=== PATIENT | female | born 1935 | race Caucasian/White ===

== ENCOUNTER 2021-04-22 13:06 | Inpatient (IN) | payer MEDICARE, SELFPAY ==
[2021-04-22] VITALS (10 sets, daily range): BP systolic 100–139; BP diastolic 29–68; PULSE 45–86; RESP 11–28; TEMP 36.4–37; O2SAT 94–97; BMI 20.1
--- NOTE | 2021-04-22 | ECG_ITS ---
Test Reason : BRADYCARDIA Blood Pressure : / mmHG Vent. Rate : 051 BPM Atrial Rate : 051 BPM P-R Int : 198 ms QRS Dur : 080 ms QT Int : 462 ms P-R-T Axes : 063 056 067 degrees QTc Int : 425 ms Sinus bradycardia Otherwise normal ECG No previous ECGs available Referred By: Generic ED Physician Electronically Signed By:KIA LAURENT
--- NOTE | ~2021-04-22 | XR_ITS ---
EXAMINATION: XR CHEST CLINICAL INFORMATION: Cough. Covid positive. COMPARISON: None TECHNIQUE: Frontal portable view of the chest was obtained. 3:16 PM FINDINGS: Lungs are clear. No pulmonary vascular congestion. There is no pleural effusion. The heart size is normal. The cardiac and mediastinal contours are normal. There are calcifications of the mitral valve annulus. There are calcifications of the thoracic aorta. There are multilevel degenerative changes of dorsal spine. XR/XR chest 1V IMPRESSION: There is no acute abnormality of the chest.
--- NOTE | ~2021-04-22 | CT_ITS ---
EXAMINATION: CT HEAD WITHOUT CONTRAST CLINICAL INFORMATION: Confusion and agitation. COMPARISON: None TECHNIQUE: Contiguous axial imaging was performed from the skull base to vertex without intravenous administration of contrast. This CT examination was performed using dose optimization techniques as appropriate, variously including the following: *Automated exposure control *Adjustment of mA and/or kV according to patient size (this includes techniques or standardized protocols for targeted exams where dose is matched to indication/reason for exam; i.e. extremities or head) *Use of iterative reconstruction technique DLP: 544 mGy-cm FINDINGS: There is no evidence of acute intracranial hemorrhage or territorial infarction. No abnormal mass effect or midline shift is seen. Diaz to white matter differentiation is well preserved. No extra-axial fluid collections are identified. The ventricles are normal in size. Mild patchy subcortical and periventricular white matter low-attenuation changes statistically related to white matter small vessel ischemic disease. The osseous structures and soft tissues are normal. The mastoid air cells and visualized portions of the paranasal sinuses are well aerated. CT/CT head/brain wo con IMPRESSION: No acute intracranial pathology.
--- NOTE | ~2021-04-22 | CT_ITS ---
EXAMINATION: CT ABDOMEN AND PELVIS WITH CONTRAST CLINICAL INFORMATION: Right-sided abdominal pain with black stool COMPARISON: None TECHNIQUE: Multidetector volumetric images were obtained from the superior aspect of the liver through the pubic symphysis following administration 85 mL of Omnipaque 350 intravenous contrast. Sagittal and coronal reformatted images were obtained on the technologist's workstation. Oral contrast: No This CT examination was performed using dose optimization techniques as appropriate, variously including the following: *Automated exposure control *Adjustment of mA and/or kV according to patient size (this includes techniques or standardized protocols for targeted exams where dose is matched to indication/reason for exam; i.e. extremities or head) *Use of iterative reconstruction technique DLP: 783 mGy-cm FINDINGS: LUNG BASES: Right lower lobe patchy infiltrate is present posteriorly (5:69). There is an ovoid pleural-based 2.0 x 1.0 x 1.5 cm nodular density seen (5:24). LIVER, GALLBLADDER, AND BILIARY TREE: The liver is normal in size, shape, and attenuation. 3 ovoid low-attenuation masses seen most likely cysts (5:94 and 7:28). The largest measures 2.7 cm in greatest dimension. No suspicious solid focal hepatic lesion is present. Patient status post cholecystectomy with prominent dilated extrahepatic bile ducts as well as central intrahepatic bile ducts. The common bile duct measures 1.6 cm proximally and 0.9 cm distally. PANCREAS: Unremarkable. SPLEEN: Unremarkable. ADRENAL GLANDS: Unremarkable. KIDNEYS AND URETERS: The kidneys are normal in size, shape, and attenuation. There are bilateral benign-appearing cortical renal cysts present. A cortical scar is present in the mid right kidney at 7:00. No hydronephrosis, hydroureter, or calculi seen. No perinephric stranding. BLADDER: Unremarkable. GASTROINTESTINAL TRACT: Extensive colonic diverticulosis is present without definite evidence of diverticulitis. The small and large bowel are unremarkable. The appendix is is not identified. ABDOMINAL WALL: No significant hernia is appreciated. LYMPH NODES: No mediastinal lymphadenopathy. VASCULAR: Marked atherosclerotic changes present in the aorta and its branches. Bilateral common iliac stenoses are present. No aneurysm is seen. A celiac stenosis is present. Bilateral renal artery stenoses are seen. PELVIC VISCERA: Unremarkable. OSSEOUS STRUCTURES: Mild degenerative changes present in the spine. Grade 1 anterolisthesis L4 upon L5. No bony destructive lesions. CT/CT abdomen pelvis w con IMPRESSION: 1. There is dilated common bile duct and mild intrahepatic biliary ductal dilatation. Please correlate with biliary function tests. No prior imaging is available for comparison. The 3 ovoid low-attenuation masses in the liver most likely represent benign cysts. Bilomas less likely. Upper abdominal ultrasound may be useful for further evaluation. 2. Bilateral renal cysts present along with right renal scarring. No further imaging follow-up is needed. 3. Marked vascular disease with bilateral common iliac stenoses, celiac stenosis and probable renal artery stenoses Fleischner guidelines were followed.
--- NOTE | ~2021-04-22 | US_ITS ---
EXAMINATION: US ABDOMEN LIMITED CLINICAL INFORMATION: Abnormal CT with dilated common bile. COMPARISON: CT abdomen pelvis performed earlier today TECHNIQUE: Real-time imaging of the right upper quadrant abdominal viscera. FINDINGS: PANCREAS: Normal. LIVER: The liver is normal in size. The liver contour is normal. Parenchymal echogenicity is normal. Multiple cysts are seen in the liver correlating with the findings seen on CT scan. There is no intrahepatic biliary duct dilatation seen. GALLBLADDER: The gallbladder is physiologically distended without evidence of stones, sludge, polyps, wall thickening or pericholecystic fluid. COMMON BILE DUCT: Normal in caliber measuring 1.5 cm in diameter correlating with the 1.6 cm CBD seen proximally on the CT scan.. RIGHT KIDNEY: Could not be imaged secondary to inability to position the patient.. FREE FLUID: None. US/US abdomen limited IMPRESSION: The common bile duct is dilated but no intrahepatic biliary ductal dilatation is seen. The cystic abnormalities in the liver on the CT scan appear to represent simple cysts.
[2021-04-22 13:46] LABS: COVID-19 Test Positive (Negative)
[2021-04-22 14:07] LABS: MANUAL DIFF FLAG NO
--- NOTE | 2021-04-22 14:07 | PC.NURSE ---
UNABLE TO OBTAIN EKG AT THIS TIME DUE TO PT BEING CONFUSED AND COMBATIVE. RN AWARE. WILL ATTEMPT AGAIN AT A LATER TIME
[2021-04-22 14:16] LABS: Basophils Percent Auto 0.2 % (0-2); Eosinophils Percent Auto 0.2 % (0-4); Hematocrit 40.2 % (37.0-47.0); Hemoglobin 14.1 g/dl (12.0-16.0); Imm Gran Abs Auto 0.02 X10*3/uL (0.00-0.03); Imm Gran Pct Auto 0.4 % (0.0-0.4); Lymphocytes Absolute Auto 1.5 X10*3/uL (1.2-4.9); Lymphocytes Percent Auto 32.2 % (20-40); Mean Corpuscular HGB Conc 35.1 g/dl (31.0-35.0); Mean Corpuscular Hemoglobin 31.2 pg (27.0-33.0); Mean Corpuscular Volume 88.9 fL (80.0-98.0); Mean Platelet Volume 10.8 fL (9.4-12.3); Monocytes Absolute Auto 0.6 X10*3/uL (0.1-1.2); Monocytes Percent Auto 13.8 % (2-11); Neutrophils Absolute Auto 2.4 x10*3/uL (2.0-8.3); Neutrophils Percent Auto 53.2 % (45-73); Platelet Count 221 X10*3/uL (160-400); Red Blood Count 4.52 X10*6/uL (4.20-5.50); White Blood Count 4.6 X10*3/uL (4.8-10.8)
--- NOTE | 2021-04-22 14:17 | ED.GENADULT ---
HPI - General Adult General Chief complaint: General Medical <REENA Ponce - Last Filed: 04/22/21 18:31> Stated complaint: black stools congestion <REENA Ponce Last Filed: 04/22/21 18:31> Time Seen by Provider: 04/22/21 13:47 <REENA Ponce Last Filed: 04/22/21 18:31> Source: family (daughter Ruth) <REENA Ponce Last Filed: 04/22/21 18:31> Mode of arrival: EMS <REENA Ponce Last Filed: 04/22/21 18:31> Limitations: altered mental status <REENA Ponce Last Filed: 04/22/21 18:31> History of Present Illness HPI narrative: 85-year-old female presents for increasing confusion, black stools and abdominal pain. Patient lives with her daughter Rebeca, who states that 5 days ago her mother started becoming more agitated and altered. She has had diarrhea for the last 3 days. Patient has been incontinent this week; she was able to toilet herself until 1 week ago when she became incontinent of urine. Rseo states patient had black stools twice this morning. She has had reduced oral intake, they are giving patient Pedialyte, but she is not drinking much. She has also had a cough and congestion <REENA Ponce - Last Filed: 04/22/21 18:31> 85-year-old female presents for increasing confusion, black stools and abdominal pain. Patient lives with her daughter Rebeca, who states that 5 days ago her mother started becoming more agitated and altered. She has had diarrhea for the last 3 days. Patient has been incontinent this week; she was able to toilet herself until 1 week ago when she became incontinent of urine. Ruth states patient had black stools twice this morning. She has had reduced oral intake, they are giving patient Pedialyte, but she is not drinking much. She has also had a cough and congestion <REENA Young Last Filed: 04/22/21 22:10> Related Data Home medications: Home Medications Medication Instructions Recorded Confirmed amlodipine 10 mg tablet 1 tab PO DAILY 04/22/21 04/22/21 carvedilol 25 mg tablet 1 tab PO BID 04/22/21 04/22/21 chlorthalidone 25 mg tablet 1 tab PO DAILY 04/22/21 04/22/21 chlorthalidone 25 mg tablet 1 tab PO DAILY 04/22/21 04/22/21 <REENA Ponce Last Filed: 04/22/21 18:31> Allergies/adverse reactions: Allergies Allergy/AdvReac Type Severity Reaction Status Date / Time Sulfa drugs Allergy Unknown Uncoded 05/29/18 00:00 <REENA Ponce Last Filed: 04/22/21 18:31> Review of Systems Constitutional: Constitutional: Reports body ache(s), Denies chills, Reports fatigue, Denies fever(s), Denies headache(s), Reports malaise and Reports weakness <REENA Ponce Last Filed: 04/22/21 18:31> Eyes: Eyes: Denies diplopia <REENA Ponce Last Filed: 04/22/21 18:31> ENT: Denies vertigo, Denies dizziness, Denies headache(s), Reports nasal discharge, Denies sinus pain and Denies sore throat <REENA Ponce Last Filed: 04/22/21 18:31> Cardiovascular: Cardiovascular: Denies chest pain, Denies syncope, Denies Loss of Consciousness, Denies palpitations and Denies dyspnea <REENA Ponce Last Filed: 04/22/21 18:31> Respiratory: Respiratory: Denies chest congestion, Denies cough and Denies dyspnea <REENA Ponce Last Filed: 04/22/21 18:31> Gastrointestinal: Gastrointestinal: Reports abdominal pain, Reports melena, Denies hematochezia, Denies constipation, Denies diarrhea, Denies vomiting and Denies hematemesis <REENA Ponce Last Filed: 04/22/21 18:31> Genitourinary: Genitourinary: Reports urinary incontinence <REENA Ponce Last Filed: 04/22/21 18:31> Musculoskeletal: Musculoskeletal: Reports no additional musculoskeletal complaints <REENA Ponce Last Filed: 04/22/21 18:31> Neurologic: Reports behavioral changes, Reports confusion, Denies vertigo, Denies dizziness, Denies syncope, Denies headache(s) and Reports weakness <REENA Ponce - Last Filed: 04/22/21 18:31> Psychiatric: Psychiatric: Reports anxiety, Reports behavioral changes, Reports confusion and Denies depression <REENA Ponce - Last Filed: 04/22/21 18:31> Endocrine: Endocrine: Reports fatigue and Denies palpitations <REENA Ponce - Last Filed: 04/22/21 18:31> [facility] Past Medical History Medical History: Medical History 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 HTN (hypertension) <REENA Ponce - Last Filed: 04/22/21 18:31> Social History Social History: Social History Advance Directives: Yes Advance Directives Information Provided: Yes Advance Directives on File: No <REENA Ponce - Last Filed: 04/22/21 18:31> Physical Exam Vital Signs: Vital Signs: Last Vital Signs Temp 97.5 F 04/22/21 20:56 Pulse 86 04/22/21 20:56 Resp 28 H 04/22/21 20:56 BP 111/32 L 04/22/21 20:09 Pulse Ox 95 04/22/21 17:21 BMI result Body Mass Index 20.1 <REENA Ponce - Last Filed: 04/22/21 18:31> Vital Signs: Last Vital Signs Temp 97.5 F 04/22/21 20:56 Pulse 86 04/22/21 20:56 Resp 28 H 04/22/21 20:56 BP 111/32 L 04/22/21 20:09 Pulse Ox 95 04/22/21 17:21 BMI result Body Mass Index 20.1 <REENA Young - Last Filed: 04/22/21 22:10> Const: General: anxious, combative and confusion <REENA Ponce - Last Filed: 04/22/21 18:31> Nutritional Appearance: cachectic <REENA Ponce Last Filed: 04/22/21 18:31> Orientation/consciousness: confusion <REENA Ponce - Last Filed: 04/22/21 18:31> Limitations: altered mental status <Joana Ball [place] - Last Filed: 04/22/21 18:31> HENMT: Head: Yes normal to inspection, Yes normocephalic and Yes atraumatic <Joana Ball [place] - Last Filed: 04/22/21 18:31> Ears: hearing grossly normal bilaterally, external ears normal, TM's normal bilaterally and EAC's normal <Joana Ball [place] - Last Filed: 04/22/21 18:31> General nose exam: Normal external nose present <Joana Ball [place] - Last Filed: 04/22/21 18:31> Face and sinus: Yes normal facial exam and Yes sinuses nontender <Joana Ball [place] - Last Filed: 04/22/21 18:31> Mouth: Normal oral and palatal mucosa present <Joana Ball [place] - Last Filed: 04/22/21 18:31> Throat: Yes posterior oropharynx normal <Joana Ball [place] - Last Filed: 04/22/21 18:31> Eyes: Conjunctivae: conjunctivae normal <Joana Ball [place] - Last Filed: 04/22/21 18:31> Pupils: Equal, round and reactive pupils present <Joana Ball [place] - Last Filed: 04/22/21 18:31> EOM: EOMs intact bilaterally <Joana Ball [place] - Last Filed: 04/22/21 18:31> Neck: Neck: Yes full ROM, Yes no lymphadenopathy and Yes supple <Joana Ball [place] - Last Filed: 04/22/21 18:31> Resp: Effort & Inspection: normal respiratory effort and able to speak in complete sentences <Joana Ball [facility] Last Filed: 04/22/21 18:31> Auscultation: clear to auscultation bilaterally, no crackles, no rales, no rhonchi and no wheezes <Joana Ball [place] - Last Filed: 04/22/21 18:31> Cardio: Rate: regular rate <Joana Ball [place] - Last Filed: 04/22/21 18:31> Rhythm: regular rhythm <Joana Ball [place] - Last Filed: 04/22/21 18:31> Heart sounds: S1 normal heart sound present and S2 normal heart sound present <REENA Ponce Last Filed: 04/22/21 18:31> GI: Inspection: Yes normal to inspection <REENA Ponce Last Filed: 04/22/21 18:31> Palpation (GI): Soft to palpation, Tenderness to palpation present (GI) in the RLQ and in the RUQ, Guarding due to palpation present (GI) in the RLQ and in the RUQ and not rigid <REENA Ponce Last Filed: 04/22/21 18:31> Percussion: Yes normal to percussion <REENA Ponce Last Filed: 04/22/21 18:31> Auscultation: normal bowel sounds <REENA Ponce Last Filed: 04/22/21 18:31> Skin: General skin exam: no rashes or lesions noted <REENA Ponce Last Filed: 04/22/21 18:31> Neuro: General: confusion <REENA Ponce Last Filed: 04/22/21 18:31> Cranial nerves: Yes Equal, round and reactive pupils present <REENA Ponce Last Filed: 04/22/21 18:31> Extrem: General: Yes normal to inspection and Yes full ROM <REENA Ponce Last Filed: 04/22/21 18:31> Psych: Mental Status: mental status grossly abnormal <REENA Ponce Last Filed: 04/22/21 18:31> Speech and movement: Psychomotor agitation in speech present <REENA Ponce Last Filed: 04/22/21 18:31> Affect: Anxious affect present and Irritable affect present <REENA Ponce Last Filed: 04/22/21 18:31> Attitude: Belligerent attititude/behavior present <REENA Ponce Last Filed: 04/22/21 18:31> Course Course Course Narrative: Pain 5-year-old female here with her daughter with whom she lives, for increasing altered mental status, black stools, diarrhea, abdominal pain, coughing congestion, and new urinary incontinence. Patient is COVID positive here. On exam, patient is agitated and is altered. She knows who and where she is, she is not oriented to time. She is extremely anxious and agitated, which her daughter says is new. Will get fecal occult stool, will do EKG, labs, troponin, urine, CT abdomen, blood cultures, lactic, chest x-ray, fluid Gave Ativan for agitation, patient had a brief episode of low blood pressure that is resolving with fluids. On rectal exam, patient has scant dark tarry stool. Patient has abnormal labs, sodium of 127, potassium 5.7, creatinine 1.98, troponin 29.9, lipase elevated at 793. White blood cell 4.6, H&H is normal at 14.1 and 40.2 <REENA Ponce - Last Filed: 04/22/21 18:31> Reevaluation(s) Reevaluation #1: Chest x-ray is normal, urine is noninfected. EKG shows sinus alisha otherwise is normal Patient is still hypotensive, will not order second full liter of fluid, as I do not want patient to go into flash pulmonary edema. Low BP is due to ativan administration, not sepsis. Not sepsis because lactate is normal, no leukocytosis. Awaiting second BMP to evaluate potassium and creatinine. Would like to CT with contrast, but Cr must be lower to do so. <REENA Ponce Last Filed: 04/22/21 18:31> Reevaluation #2: With fluid bolus, patient's potassium is now 5.2, creatinine 1.67, sodium 129. Discussed giving more fluid with Dr Wang, who said to go ahead and give a 3rd lliter; pt does not have CHF <REENA Ponce Last Filed: 04/22/21 18:31> Reevaluation #3: Pt's BP and HR are improving; she is waking up. Signed pt out to REENA Mobley, pending CT result and subsequent admission <REENA Ponce Last Filed: 04/22/21 18:31> Additional Reevaluation(s): CT scan showing CBD and intrahepatic biliary duct dilatation. she is status post cholecystectomy. right upper quadrant ultrasound ordered for further characterization. She continues to be agitated and altered. Will get CT head in plan for admission. Case discussed with Dr. Salas who will admit. <REENA Young - Last Filed: 04/22/21 22:10> Medical Decision Making Lab Data Result diagrams: : 04/22/21 14:01 04/22/21 16:02 <REENA Ponce - Last Filed: 04/22/21 18:31> Labs: Lab Results 04/22/21 04/22/21 04/22/21 Range/Units 13:34 14:01 14:01 WBC 4.6 L (4.8-10.8) X10*3/uL RBC 4.52 (4.20-5.50) X10*6/uL Hgb 14.1 (12.0-16.0) g/dl Hct 40.2 (37.0-47.0) % MCV 88.9 (80.0-98.0) fL MCH 31.2 (27.0-33.0) pg MCHC 35.1 H (31.0-35.0) g/dl RDW 12.0 (11.0-16.0) % Plt Count 221 (160-400) X10*3/uL MPV 10.8 (9.4-12.3) fL Immature Gran % (Auto) 0.4 (0.0-0.4) % Neut % (Auto) 53.2 (45-73) % Lymph % (Auto) 32.2 (20-40) % [place] % (Auto) 13.8 H (2-11) % Eos % (Auto) 0.2 (0-4) % Baso % (Auto) 0.2 (0-2) % Lymph # (Auto) 1.5 (1.2-4.9) X10*3/uL [place] # (Auto) 0.6 (0.1-1.2) X10*3/uL Eos # (Auto) 0.0 (0.0-0.4) X10*3/uL Baso # (Auto) 0.0 (0.0-0.2) X10*3/uL Abs Immat Gran (auto) 0.02 (0.00-0.03) X10*3/uL Absolute Neuts (auto) 2.4 (2.0-8.3) x10*3/uL Absolute Nucleated RBC 0.000 (0.0-0.012) X10*3/uL Nucleated RBC % (auto) 0.0 (0.0-0.2) /100WBC Sodium 127 L (135-145) mmol/L Potassium 5.7 H (3.3-5.1) mmol/L Chloride 97 (96-108) mmol/L Carbon Dioxide 20 L (22-29) mmol/L Anion Gap 16 (12-20) BUN 57 H (9-16) mg/dL Creatinine 1.98 H (0.5-1.4) mg/dL Estim Creat Clear Calc 16.3 Estimated GFR 24 Random Glucose 124 H (60-115) mg/dL Lactic Acid (0.5-2.0) mmol/L Calcium 9.3 (8.4-10.2) mg/dL Total Bilirubin 0.3 (0.0-1.0) mg/dL AST 48 H (5-31) U/L ALT 90 H (0-31) U/L Alkaline Phosphatase 63 (39-117) U/L Troponin I High Sens (<3.5-17.0) ng/L Total Protein 6.9 (6.5-8.0) g/dL Albumin 3.8 (3.5-5.0) g/dL Lipase 793 H (8-78) U/L Urine Color Urine Appearance Urine pH (5.0-8.0) Ur Specific Laura (1.005-1.025) Urine Protein (NEG-TRACE) MG/DL Urine Glucose (UA) (NEG) MG/DL Urine Ketones (NEG) MG/DL Urine Blood (NEG) Urine Nitrite (NEG) Ur Leukocyte Esterase (NEG) Urine RBC (0) /HPF Urine WBC (0-4) /HPF Ur Squamous Epith Cells /LPF Urine Bacteria /LPF Stool Occult Blood (NEGATIVE) COVID-19 ([facility]ACE) Positive A (Negative) COVID-19 Clin Com See Note 04/22/21 04/22/21 04/22/21 Range/Units 14:01 14:35 14:55 WBC (4.8-10.8) X10*3/uL RBC (4.20-5.50) X10*6/uL Hgb (12.0-16.0) g/dl Hct (37.0-47.0) % MCV (80.0-98.0) fL MCH (27.0-33.0) pg MCHC (31.0-35.0) g/dl RDW (11.0-16.0) % Plt Count (160-400) X10*3/uL MPV (9.4-12.3) fL Immature Gran % (Auto) (0.0-0.4) % Neut % (Auto) (45-73) % Lymph % (Auto) (20-40) % [place] % (Auto) (2-11) % Eos % (Auto) (0-4) % Baso % (Auto) (0-2) % Lymph # (Auto) (1.2-4.9) X10*3/uL [place] # (Auto) (0.1-1.2) X10*3/uL Eos # (Auto) (0.0-0.4) X10*3/uL Baso # (Auto) (0.0-0.2) X10*3/uL Abs Immat Gran (auto) (0.00-0.03) X10*3/uL Absolute Neuts (auto) (2.0-8.3) x10*3/uL Absolute Nucleated RBC (0.0-0.012) X10*3/uL Nucleated RBC % (auto) (0.0-0.2) /100WBC Sodium (135-145) mmol/L Potassium (3.3-5.1) mmol/L Chloride (96-108) mmol/L Carbon Dioxide (22-29) mmol/L Anion Gap (12-20) BUN (9-16) mg/dL Creatinine (0.5-1.4) mg/dL Estim Creat Clear Calc Estimated GFR Random Glucose (60-115) mg/dL Lactic Acid 1.0 (0.5-2.0) mmol/L Calcium (8.4-10.2) mg/dL Total Bilirubin (0.0-1.0) mg/dL AST (5-31) U/L ALT (0-31) U/L Alkaline Phosphatase (39-117) U/L Troponin I High Sens 29.9 H (<3.5-17.0) ng/L Total Protein (6.5-8.0) g/dL Albumin (3.5-5.0) g/dL Lipase (8-78) U/L Urine Color Urine Appearance Urine pH (5.0-8.0) Ur Specific Laura (1.005-1.025) Urine Protein (NEG-TRACE) MG/DL Urine Glucose (UA) (NEG) MG/DL Urine Ketones (NEG) MG/DL Urine Blood (NEG) Urine Nitrite (NEG) Ur Leukocyte Esterase (NEG) Urine RBC (0) /HPF Urine WBC (0-4) /HPF Ur Squamous Epith Cells /LPF Urine Bacteria /LPF Stool Occult Blood NEGATIVE (NEGATIVE) COVID-19 ([facility]ACE) (Negative) COVID-19 Clin Com 04/22/21 04/22/21 04/22/21 Range/Units 15:08 16:02 17:17 WBC (4.8-10.8) X10*3/uL RBC (4.20-5.50) X10*6/uL Hgb (12.0-16.0) g/dl Hct (37.0-47.0) % MCV (80.0-98.0) fL MCH (27.0-33.0) pg MCHC (31.0-35.0) g/dl RDW (11.0-16.0) % Plt Count (160-400) X10*3/uL MPV (9.4-12.3) fL Immature Gran % (Auto) (0.0-0.4) % Neut % (Auto) (45-73) % Lymph % (Auto) (20-40) % [place] % (Auto) (2-11) % Eos % (Auto) (0-4) % Baso % (Auto) (0-2) % Lymph # (Auto) (1.2-4.9) X10*3/uL [place] # (Auto) (0.1-1.2) X10*3/uL Eos # (Auto) (0.0-0.4) X10*3/uL Baso # (Auto) (0.0-0.2) X10*3/uL Abs Immat Gran (auto) (0.00-0.03) X10*3/uL Absolute Neuts (auto) (2.0-8.3) x10*3/uL Absolute Nucleated RBC (0.0-0.012) X10*3/uL Nucleated RBC % (auto) (0.0-0.2) /100WBC Sodium 129 L (135-145) mmol/L Potassium 5.2 H (3.3-5.1) mmol/L Chloride 103 (96-108) mmol/L Carbon Dioxide 18 L (22-29) mmol/L Anion Gap 13 (12-20) BUN 53 H (9-16) mg/dL Creatinine 1.67 H (0.5-1.4) mg/dL Estim Creat Clear Calc 19.4 Estimated GFR 29 Random Glucose 104 (60-115) mg/dL Lactic Acid (0.5-2.0) mmol/L Calcium 8.1 L D (8.4-10.2) mg/dL Total Bilirubin (0.0-1.0) mg/dL AST (5-31) U/L ALT (0-31) U/L Alkaline Phosphatase (39-117) U/L Troponin I High Sens 24.4 H (<3.5-17.0) ng/L Total Protein (6.5-8.0) g/dL Albumin (3.5-5.0) g/dL Lipase (8-78) U/L Urine Color YELLOW Urine Appearance CLEAR Urine pH 5.0 (5.0-8.0) Ur Specific Laura 1.020 (1.005-1.025) Urine Protein NEG (NEG-TRACE) MG/DL Urine Glucose (UA) NEG (NEG) MG/DL Urine Ketones NEG (NEG) MG/DL Urine Blood NEG (NEG) Urine Nitrite NEG (NEG) Ur Leukocyte Esterase NEG (NEG) Urine RBC 0 (0) /HPF Urine WBC 0 (0-4) /HPF Ur Squamous Epith Cells 1+ /LPF Urine Bacteria NONE /LPF Stool Occult Blood (NEGATIVE) COVID-19 ([facility]ACE) (Negative) COVID-19 Clin Com <REENA Ponce - Last Filed: 04/22/21 18:31> Lab Results 04/22/21 04/22/21 04/22/21 Range/Units 13:34 14:01 14:01 WBC 4.6 L (4.8-10.8) X10*3/uL RBC 4.52 (4.20-5.50) X10*6/uL Hgb 14.1 (12.0-16.0) g/dl Hct 40.2 (37.0-47.0) % MCV 88.9 (80.0-98.0) fL MCH 31.2 (27.0-33.0) pg MCHC 35.1 H (31.0-35.0) g/dl RDW 12.0 (11.0-16.0) % Plt Count 221 (160-400) X10*3/uL MPV 10.8 (9.4-12.3) fL Immature Gran % (Auto) 0.4 (0.0-0.4) % Neut % (Auto) 53.2 (45-73) % Lymph % (Auto) 32.2 (20-40) % [place] % (Auto) 13.8 H (2-11) % Eos % (Auto) 0.2 (0-4) % Baso % (Auto) 0.2 (0-2) % Lymph # (Auto) 1.5 (1.2-4.9) X10*3/uL [place] # (Auto) 0.6 (0.1-1.2) X10*3/uL Eos # (Auto) 0.0 (0.0-0.4) X10*3/uL Baso # (Auto) 0.0 (0.0-0.2) X10*3/uL Abs Immat Gran (auto) 0.02 (0.00-0.03) X10*3/uL Absolute Neuts (auto) 2.4 (2.0-8.3) x10*3/uL Absolute Nucleated RBC 0.000 (0.0-0.012) X10*3/uL Nucleated RBC % (auto) 0.0 (0.0-0.2) /100WBC Sodium 127 L (135-145) mmol/L Potassium 5.7 H (3.3-5.1) mmol/L Chloride 97 (96-108) mmol/L Carbon Dioxide 20 L (22-29) mmol/L Anion Gap 16 (12-20) BUN 57 H (9-16) mg/dL Creatinine 1.98 H (0.5-1.4) mg/dL Estim Creat Clear Calc 16.3 Estimated GFR 24 Random Glucose 124 H (60-115) mg/dL Lactic Acid (0.5-2.0) mmol/L Calcium 9.3 (8.4-10.2) mg/dL Total Bilirubin 0.3 (0.0-1.0) mg/dL AST 48 H (5-31) U/L ALT 90 H (0-31) U/L Alkaline Phosphatase 63 (39-117) U/L Troponin I High Sens (<3.5-17.0) ng/L Total Protein 6.9 (6.5-8.0) g/dL Albumin 3.8 (3.5-5.0) g/dL Lipase 793 H (8-78) U/L Urine Color Urine Appearance Urine pH (5.0-8.0) Ur Specific Laura (1.005-1.025) Urine Protein (NEG-TRACE) MG/DL Urine Glucose (UA) (NEG) MG/DL Urine Ketones (NEG) MG/DL Urine Blood (NEG) Urine Nitrite (NEG) Ur Leukocyte Esterase (NEG) Urine RBC (0) /HPF Urine WBC (0-4) /HPF Ur Squamous Epith Cells /LPF Urine Bacteria /LPF Stool Occult Blood (NEGATIVE) COVID-19 ([facility]) Positive A (Negative) COVID-19 Clin Com See Note 04/22/21 04/22/21 04/22/21 Range/Units 14:01 14:35 14:55 WBC (4.8-10.8) X10*3/uL RBC (4.20-5.50) X10*6/uL Hgb (12.0-16.0) g/dl Hct (37.0-47.0) % MCV (80.0-98.0) fL MCH (27.0-33.0) pg MCHC (31.0-35.0) g/dl RDW (11.0-16.0) % Plt Count (160-400) X10*3/uL MPV (9.4-12.3) fL Immature Gran % (Auto) (0.0-0.4) % Neut % (Auto) (45-73) % Lymph % (Auto) (20-40) % [place] % (Auto) (2-11) % Eos % (Auto) (0-4) % Baso % (Auto) (0-2) % Lymph # (Auto) (1.2-4.9) X10*3/uL [place] # (Auto) (0.1-1.2) X10*3/uL Eos # (Auto) (0.0-0.4) X10*3/uL Baso # (Auto) (0.0-0.2) X10*3/uL Abs Immat Gran (auto) (0.00-0.03) X10*3/uL Absolute Neuts (auto) (2.0-8.3) x10*3/uL Absolute Nucleated RBC (0.0-0.012) X10*3/uL Nucleated RBC % (auto) (0.0-0.2) /100WBC Sodium (135-145) mmol/L Potassium (3.3-5.1) mmol/L Chloride (96-108) mmol/L Carbon Dioxide (22-29) mmol/L Anion Gap (12-20) BUN (9-16) mg/dL Creatinine (0.5-1.4) mg/dL Estim Creat Clear Calc Estimated GFR Random Glucose (60-115) mg/dL Lactic Acid 1.0 (0.5-2.0) mmol/L Calcium (8.4-10.2) mg/dL Total Bilirubin (0.0-1.0) mg/dL AST (5-31) U/L ALT (0-31) U/L Alkaline Phosphatase (39-117) U/L Troponin I High Sens 29.9 H (<3.5-17.0) ng/L Total Protein (6.5-8.0) g/dL Albumin (3.5-5.0) g/dL Lipase (8-78) U/L Urine Color Urine Appearance Urine pH (5.0-8.0) Ur Specific Laura (1.005-1.025) Urine Protein (NEG-TRACE) MG/DL Urine Glucose (UA) (NEG) MG/DL Urine Ketones (NEG) MG/DL Urine Blood (NEG) Urine Nitrite (NEG) Ur Leukocyte Esterase (NEG) Urine RBC (0) /HPF Urine WBC (0-4) /HPF Ur Squamous Epith Cells /LPF Urine Bacteria /LPF Stool Occult Blood NEGATIVE (NEGATIVE) COVID-19 ([facility]) (Negative) COVID-19 Clin Com 04/22/21 04/22/21 04/22/21 Range/Units 15:08 16:02 17:17 WBC (4.8-10.8) X10*3/uL RBC (4.20-5.50) X10*6/uL Hgb (12.0-16.0) g/dl Hct (37.0-47.0) % MCV (80.0-98.0) fL MCH (27.0-33.0) pg MCHC (31.0-35.0) g/dl RDW (11.0-16.0) % Plt Count (160-400) X10*3/uL MPV (9.4-12.3) fL Immature Gran % (Auto) (0.0-0.4) % Neut % (Auto) (45-73) % Lymph % (Auto) (20-40) % [place] % (Auto) (2-11) % Eos % (Auto) (0-4) % Baso % (Auto) (0-2) % Lymph # (Auto) (1.2-4.9) X10*3/uL [place] # (Auto) (0.1-1.2) X10*3/uL Eos # (Auto) (0.0-0.4) X10*3/uL Baso # (Auto) (0.0-0.2) X10*3/uL Abs Immat Gran (auto) (0.00-0.03) X10*3/uL Absolute Neuts (auto) (2.0-8.3) x10*3/uL Absolute Nucleated RBC (0.0-0.012) X10*3/uL Nucleated RBC % (auto) (0.0-0.2) /100WBC Sodium 129 L (135-145) mmol/L Potassium 5.2 H (3.3-5.1) mmol/L Chloride 103 (96-108) mmol/L Carbon Dioxide 18 L (22-29) mmol/L Anion Gap 13 (12-20) BUN 53 H (9-16) mg/dL Creatinine 1.67 H (0.5-1.4) mg/dL Estim Creat Clear Calc 19.4 Estimated GFR 29 Random Glucose 104 (60-115) mg/dL Lactic Acid (0.5-2.0) mmol/L Calcium 8.1 L D (8.4-10.2) mg/dL Total Bilirubin (0.0-1.0) mg/dL AST (5-31) U/L ALT (0-31) U/L Alkaline Phosphatase (39-117) U/L Troponin I High Sens 24.4 H (<3.5-17.0) ng/L Total Protein (6.5-8.0) g/dL Albumin (3.5-5.0) g/dL Lipase (8-78) U/L Urine Color YELLOW Urine Appearance CLEAR Urine pH 5.0 (5.0-8.0) Ur Specific Laura 1.020 (1.005-1.025) Urine Protein NEG (NEG-TRACE) MG/DL Urine Glucose (UA) NEG (NEG) MG/DL Urine Ketones NEG (NEG) MG/DL Urine Blood NEG (NEG) Urine Nitrite NEG (NEG) Ur Leukocyte Esterase NEG (NEG) Urine RBC 0 (0) /HPF Urine WBC 0 (0-4) /HPF Ur Squamous Epith Cells 1+ /LPF Urine Bacteria NONE /LPF Stool Occult Blood (NEGATIVE) COVID-19 ([facility]) (Negative) COVID-19 Clin Com <RENEA Young - Last Filed: 04/22/21 22:10> ECG Data Interpretation: Patient is sinus bradycardia with a rate of 51, PA 198, QRS 80, QTC 425, no ST elevations or depressions, no T-wave changes <REENA Ponce - Last Filed: 04/22/21 18:31> Discharge Plan Discharge Clinical Impression: COVID-19, Acute dehydration, PAULA (acute kidney injury), Hyponatremia, Hyperkalemia, Acute alteration in mental status <REENA Ponce Last Filed: 04/22/21 18:31>
[2021-04-22 14:31] LABS: Alanine Aminotransferase 90 U/L (0-31); Albumin Level 3.8 g/dL (3.5-5.0); Alkaline Phosphatase 63 U/L (39-117); Anion Gap 16 (12-20); Aspartate Amino Transferase 48 U/L (5-31); Bilirubin Total 0.3 mg/dL (0.0-1.0); Blood Urea Nitrogen 57 mg/dL (9-16); Calcium 9.3 mg/dL (8.4-10.2); Carbon Dioxide 20 mmol/L (22-29); Chloride 97 mmol/L (96-108); Creatinine Clr Calc Pharmacy 16.3; Estimated Glomerular Filt Rate 24; Glucose Random 124 mg/dL (60-115); Lipase 793 U/L (8-78); Potassium 5.7 mmol/L (3.3-5.1); Sodium 127 mmol/L (135-145); Total Protein 6.9 g/dL (6.5-8.0)
[2021-04-22 14:32] LABS: Troponin-I High Sensitivity 29.9 ng/L (<3.5-17.0)
[2021-04-22] MEDS: LORazepam 2 MG/ML VIAL IVPUSH (14:37)
[2021-04-22] MEDS: 0.9 % Sodium Chloride 1,496.85 ML 1496.85 ML IV (14:41)
--- NOTE | 2021-04-22 14:41 | PHA.MEDREC ---
Pharmacy Consult ? Medication Reconciliation Pharmacy has completed the medication reconciliation. Confirmed medications with patient's duaghter. Sheri Pulido, AjayD
--- NOTE | 2021-04-22 14:51 | PC.NURSE ---
melanie VALLES notified of MAP 53 , BP 101/29
[2021-04-22 15:05] LABS: OBS Int Ctl Valid YES; OBS1 NEGATIVE (NEGATIVE)
[2021-04-22 15:15] LABS: Appearance Urine CLEAR; Color Urine YELLOW; Glucose Urine UA NEG (NEG); Leukocyte Esterase Urine NEG (NEG); Nitrite Urine NEG (NEG); Urine Blood NEG (NEG); Urine Ketones NEG (NEG); Urine Protein NEG (NEG-TRACE)
[2021-04-22 15:56] LABS: RBC Urine 0 /HPF (0); Squamous Epithelial Cell Urine 1+ /LPF; WBC Urine 0 /HPF (0-4)
[2021-04-22 16:26] LABS: Anion Gap 13 (12-20); Blood Urea Nitrogen 53 mg/dL (9-16); Calcium 8.1 mg/dL (8.4-10.2); Carbon Dioxide 18 mmol/L (22-29); Chloride 103 mmol/L (96-108); Creatinine Clr Calc Pharmacy 19.4; Estimated Glomerular Filt Rate 29; Glucose Random 104 mg/dL (60-115); Potassium 5.2 mmol/L (3.3-5.1); Sodium 129 mmol/L (135-145)
[2021-04-22] MEDS: iohexoL 350 MG/ML 100 ML INFUS..BTL IV (17:05)
[2021-04-22] MEDS: 0.9 % Sodium Chloride 1,000 ML 999 ML IV (17:23)
[2021-04-22 18:02] LABS: Troponin-I High Sensitivity 24.4 ng/L (<3.5-17.0)
--- NOTE | 2021-04-22 20:12 | PC.NURSE ---
pt disoriented, restless, not making sense- daughter at bedside, her caregiver, able to assist with pt. pt attempting to climb out of bed, pull IV out, pull at all wires. constant redirection needed.
--- NOTE | 2021-04-22 21:15 | P.HPHOSP_ITS ---
History of Present Illness Date of Service: 04/22/21 Chief Complaint: confusion this is an 85-year-old female with past medical history of PVD with a carotid artery occlusion status post left endarterectomy , congenital heart valve abnormality, hypertension who brought in by her daughter for cough confusion as well as black stools. patient is very confused, delirious, therefore cannot give history. History is obtained from her daughter at bedside. Daughter reports the patient has had increased confusion for the past 2 weeks, has been coughing, complaining of abdominal pain, has had congestion. for the past 3 days she noticed that she has been having black stools, daughter was concerned and therefore brought her to the hospital. On arrival to the ED patient found to have a temp of 98.6?, heart rate of 45, respiratory rate of 18, blood pressure 139/54 satting 97% on room air Labs are significant for WBC count of 4.6, sodium 127, potassium of 5.7, BUN of 57, creatinine of 1.98 with no baseline for comparison, AST of 48, ALT of 90, troponin of 29.9 with repeat of 24.4, lipase of 793, UA negative, COVID-19 positive, occult stool negative Abdominal CT showed dilated common bile duct and mild intrahepatic biliary ductal dilatation, bilateral renal cysts, abdominal ultrasound showed common bile duct is dilated but no intrahepatic biliary ductal dilatation. head CT shows no acute intracranial pathology chest x-ray shows no acute abnormality of the chest patient will be admitted for further management Review of Systems Review of Systems: Yes Unobtainable due to mental status [facility] Medical History 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 HTN (hypertension) Pertinent family history: no history of coronary artery disease Surgical History (Updated 04/23/21 @ 05:43 by Fab Salas MD) No pertinent past surgical history Social History Advance Directives: Yes Advance Directives Information Provided: Yes Advance Directives on File: No Meds Allergies Allergy/AdvReac Type Severity Reaction Status Date / Time Sulfa drugs Allergy Unknown Uncoded 05/29/18 00:00 Home Medications Medication Instructions Recorded Confirmed Last Taken Type amlodipine 10 mg tablet 1 tab PO DAILY 04/22/21 04/22/21 Unknown History carvedilol 25 mg tablet 1 tab PO BID 04/22/21 04/22/21 Unknown History chlorthalidone 25 mg tablet 1 tab PO DAILY 04/22/21 04/22/21 Unknown History chlorthalidone 25 mg tablet 1 tab PO DAILY 04/22/21 04/22/21 Unknown History Physical Exam Vital Signs and Narrative: Vital Signs: Last Vital Signs Temp 97.5 F 04/22/21 20:56 Pulse 86 04/22/21 20:56 Resp 28 H 04/22/21 20:56 BP 111/32 L 04/22/21 20:09 Pulse Ox 95 04/22/21 17:21 BMI result Body Mass Index 20.1 Const: Other: patient is confused, delirious, pulling at her wires and lines not recognizing her daughter General: no acute distress Eyes: General: appearance normal, both eyes and all related structures Pupils: Equal, round and reactive pupils present Resp: Effort & Inspection: normal respiratory effort Auscultation: clear to auscultation bilaterally Cardio: Rate: regular rate Rhythm: regular rhythm GI: Palpation (GI): Soft to palpation Auscultation: normal bowel sounds Skin: General skin exam: no rashes or lesions noted Neuro: Cranial nerves: Yes Equal, round and reactive pupils present Extrem: General: Yes normal to inspection and Yes no pedal edema Results Labs CBC and Chem 7: 04/22/21 14:01 04/22/21 16:02 Labs: Laboratory Results - last 24 hr 04/22/21 04/22/21 04/22/21 13:34 14:01 14:01 MCV 88.9 MCH 31.2 MCHC 35.1 H RDW 12.0 Plt Count 221 MPV 10.8 Immature Gran % (Auto) 0.4 Neut % (Auto) 53.2 Lymph % (Auto) 32.2 Till[place] % (Auto) 13.8 H Eos % (Auto) 0.2 Baso % (Auto) 0.2 Lymph # (Auto) 1.5 [place] # (Auto) 0.6 Eos # (Auto) 0.0 Baso # (Auto) 0.0 Abs Immat Gran (auto) 0.02 Absolute Neuts (auto) 2.4 Absolute Nucleated RBC 0.000 Nucleated RBC % (auto) 0.0 Anion Gap 16 Estim Creat Clear Calc 16.3 Estimated GFR 24 Random Glucose 124 H Lactic Acid Calcium 9.3 Total Bilirubin 0.3 AST 48 H ALT 90 H Alkaline Phosphatase 63 Troponin I High Sens Total Protein 6.9 Albumin 3.8 Lipase 793 H Urine Color Urine Appearance Urine pH Ur Specific [place] Urine Protein Urine Glucose (UA) Urine Ketones Urine Blood Urine Nitrite Ur Leukocyte Esterase Urine RBC Urine WBC Ur Squamous Epith Cells Urine Bacteria Stool Occult Blood COVID-19 (GRACE) Positive A COVID-19 Clin Com See Note 04/22/21 04/22/21 04/22/21 14:01 14:35 14:55 MCV MCH MCHC RDW Plt Count MPV Immature Gran % (Auto) Neut % (Auto) Lymph % (Auto) [place] % (Auto) Eos % (Auto) Baso % (Auto) Lymph # (Auto) [place] # (Auto) Eos # (Auto) Baso # (Auto) Abs Immat Gran (auto) Absolute Neuts (auto) Absolute Nucleated RBC Nucleated RBC % (auto) Anion Gap Estim Creat Clear Calc Estimated GFR Random Glucose Lactic Acid 1.0 Calcium Total Bilirubin AST ALT Alkaline Phosphatase Troponin I High Sens 29.9 H Total Protein Albumin Lipase Urine Color Urine Appearance Urine pH Ur Specific [place] Urine Protein Urine Glucose (UA) Urine Ketones Urine Blood Urine Nitrite Ur Leukocyte Esterase Urine RBC Urine WBC Ur Squamous Epith Cells Urine Bacteria Stool Occult Blood NEGATIVE COVID-19 ([facility]ACE) COVID-19 Clin Com 04/22/21 04/22/21 04/22/21 15:08 16:02 17:17 MCV MCH MCHC RDW Plt Count MPV Immature Gran % (Auto) Neut % (Auto) Lymph % (Auto) [place] % (Auto) Eos % (Auto) Baso % (Auto) Lymph # (Auto) [place] # (Auto) Eos # (Auto) Baso # (Auto) Abs Immat Gran (auto) Absolute Neuts (auto) Absolute Nucleated RBC Nucleated RBC % (auto) Anion Gap 13 Estim Creat Clear Calc 19.4 Estimated GFR 29 Random Glucose 104 Lactic Acid Calcium 8.1 L D Total Bilirubin AST ALT Alkaline Phosphatase Troponin I High Sens 24.4 H Total Protein Albumin Lipase Urine Color YELLOW Urine Appearance CLEAR Urine pH 5.0 Ur Specific [place] 1.020 Urine Protein NEG Urine Glucose (UA) NEG Urine Ketones NEG Urine Blood NEG Urine Nitrite NEG Ur Leukocyte Esterase NEG Urine RBC 0 Urine WBC 0 Ur Squamous Epith Cells 1+ Urine Bacteria NONE Stool Occult Blood COVID-19 (GRACE) COVID-19 Clin Com Imaging Radiologist's Impressions: Impressions Chest X-Ray 04/22/21 15:20 IMPRESSION: There is no acute abnormality of the chest. Abdomen/Pelvis CT 04/22/21 17:09 IMPRESSION: 1. There is dilated common bile duct and mild intrahepatic biliary ductal dilatation. Please correlate with biliary function tests. No prior imaging is available for comparison. The 3 ovoid low-attenuation masses in the liver most likely represent benign cysts. Bilomas less likely. Upper abdominal ultrasound may be useful for further evaluation. 2. Bilateral renal cysts present along with right renal scarring. No further imaging follow-up is needed. 3. Marked vascular disease with bilateral common iliac stenoses, celiac stenosis and probable renal artery stenoses Fleischner guidelines were followed. Abdomen Ultrasound 04/22/21 19:53 IMPRESSION: The common bile duct is dilated but no intrahepatic biliary ductal dilatation is seen. The cystic abnormalities in the liver on the CT scan appear to represent simple cysts. Assessment and Plan (1) Encephalopathy: Status: Acute (2) COVID-19: Status: Acute (3) PAULA (acute kidney injury): Status: Acute (4) Hyponatremia: Status: Acute (5) Hyperkalemia: Status: Acute 85-year-old female with past medical history of hypertension presents to the hospital with multiple issues including cephalopathy, congestion found to have COVID-19 pneumonia # toxic metabolic encephalopathy - possibly secondary to COVID encephalopathy as well as PAULA uremia as well as hyponatremia and electrolyte abnormality - head CT negative, no other evidence of infection UA negative, chest x-ray shows no infiltrate, afebrile - will treat her PAULA, and monitor her mentation # COVID-19 infection - no evidence of hypoxia - monitor respiratory status # PAULA - most likely secondary to dehydration - no evidence of obstruction, no UTI - IV fluid - follow BMP # hyponatremia - most likely hypovolemic hyponatremia - improved with fluid administration - will continue IV fluids, follow BMP # hyperkalemia - most likely secondary to PAULA as well as hemoconcentration - no EKG changes - improved with IV fluids - monitor BMP # black stools - no evidence of GI bleed, stool occult negative - hemoglobin stable - follow CBC # hypertension - stable, will hold antihypertensives in the setting of soft BP is as well as PAULA and dehydration DVT prophylaxis: Heparin subQ Quality Stroke Does the patient have a stroke diagnosis?: No VTE Prior VTE?: No VTE Risk Level:: Medical - moderate - high VTE Device Contraindication: Treatment Not Indicated VTE Drug Contraindication: N/A - Med Ordered
[2021-04-22] MEDS: Heparin Sodium,Porcine 5,000 UNIT/ML VIAL 5000 UNIT SUBCUT (23:47)
[2021-04-22] MEDS: Haloperidol Lactate 5 MG/ML VIAL IVPUSH (23:47)
--- NOTE | 2021-04-23 00:55 | ECG_ITS ---
Test Reason : LOW HEART RATE Blood Pressure : / mmHG Vent. Rate : 049 BPM Atrial Rate : 049 BPM P-R Int : 190 ms QRS Dur : 094 ms QT Int : 484 ms P-R-T Axes : 058 030 057 degrees QTc Int : 437 ms Sinus bradycardia with Premature ventricular complexes Abnormal ECG When compared with ECG of 22-APR-2021 15:35, Premature ventricular complexes now present Referred By: Fab Salas Electronically Signed By:KAI LAURENT
[2021-04-23] MEDS: 0.9 % Sodium Chloride 1,000 ML 100 ML IVCONT ×3 (02:06→22:52)
--- NOTE | 2021-04-23 02:17 | PC.NURSE ---
RN made radiology aware of patient's stuporous state and asked that they make an attempt to obtain the brain CT. RN will accompany patient to CT as patient placed on portable monitor related to bradycardic heart rate.
[2021-04-23 06:42] LABS: MANUAL DIFF FLAG NO
[2021-04-23 07:05] LABS: Basophils Percent Auto 0.2 % (0-2); Eosinophils Percent Auto 0.2 % (0-4); Hematocrit 42.5 % (37.0-47.0); Hemoglobin 14.7 g/dl (12.0-16.0); Imm Gran Abs Auto 0.02 X10*3/uL (0.00-0.03); Imm Gran Pct Auto 0.4 % (0.0-0.4); Lymphocytes Percent Auto 17.5 % (20-40); Mean Corpuscular HGB Conc 34.6 g/dl (31.0-35.0); Mean Corpuscular Hemoglobin 31.1 pg (27.0-33.0); Mean Platelet Volume 10.9 fL (9.4-12.3); Monocytes Absolute Auto 0.4 X10*3/uL (0.1-1.2); Neutrophils Absolute Auto 4.2 x10*3/uL (2.0-8.3); Neutrophils Percent Auto 74.7 % (45-73); Platelet Count 210 X10*3/uL (160-400); Red Blood Count 4.72 X10*6/uL (4.20-5.50); White Blood Count 5.6 X10*3/uL (4.8-10.8)
[2021-04-23 07:07] LABS: Anion Gap 15 (12-20); Blood Urea Nitrogen 44 mg/dL (9-16); Calcium 8.8 mg/dL (8.4-10.2); Carbon Dioxide 17 mmol/L (22-29); Chloride 107 mmol/L (96-108); Creatinine Clr Calc Pharmacy 23.8; Estimated Glomerular Filt Rate 37; Glucose Random 128 mg/dL (60-115); Potassium 5.1 mmol/L (3.3-5.1); Sodium 134 mmol/L (135-145)
[2021-04-23] MEDS: 0.9 % Sodium Chloride Flush 3 ML SYRINGE IVFLUSH (07:22)
[2021-04-23 07:23] VITALS: BP 123/60; PULSE 74; RESP 16; O2SAT 96
[2021-04-23] MEDS: Haloperidol Lactate 5 MG/ML VIAL IVPUSH (10:54)
[2021-04-23 12:03] VITALS: PULSE 59; RESP 14
[2021-04-23] MEDS: Heparin Sodium,Porcine 5,000 UNIT/ML VIAL 5000 UNIT SUBCUT (12:04)
--- NOTE | 2021-04-23 12:42 | P.PNIM_ITS ---
Subjective Subjective Date of Service: 05/03/21 Interval History: Patient seen this morning Altered mentation, answering Questions and moving all extremities but Keep I closed and very anxious and restless in the bed Reported by the nurses she tries to remove her IVs Review of Systems Unable to provide any meaningful answers, denies pain though Physical Exam Vital Signs: Vital Signs: Last Vital Signs Temp 97.5 F 04/22/21 20:56 Pulse 59 04/23/21 12:03 Resp 14 04/23/21 12:03 BP 123/60 04/23/21 07:23 Pulse Ox 96 04/23/21 07:23 BMI result Body Mass Index 20.1 Const: Other: Constitutional : Restless, Answering questions, delirious Neck : Normal inspection, Supple Cardiovascular : RRR, S1 S2, no lower extremity edema Respiratory : Fair bilateral air entry, no crackles, wheezes or rhonchi Gastrointestinal: soft, lax, Normal bowel sounds, Non tender Skin : Warm, Dry Neurological : Answering but not following orders, very, confused about time and place No focal deficit Objective Data Active Medications Acetaminophen (Acetaminophen 325 Mg Tablet) 650 mg PO Q6H PRN PRN Reason: Pain, Mild (Pain Scale 1-3) Heparin Sodium (Porcine) (Heparin Sodium,Porcine 5,000 Unit/Ml Vial) 5,000 unit SUBCUT Q12H [facility] Last Admin: 04/23/21 12:04 Dose: 5,000 unit Documented by: RONALDO Sodium Chloride (Ns) 1,000 mls @ 100 mls/hr IVCONT .Q10H [facility] Last Admin: 04/23/21 12:03 Dose: 100 mls/hr Documented by: RONALDO Ondansetron HCl (Ondansetron Hcl 4 Mg/2 Ml Vial) 4 mg IVPUSH Q8H PRN PRN Reason: Nausea and Vomiting Sodium Chloride (0.9 % Sodium Chloride Flush 3 Ml Syringe) 3 ml IVFLUSH QSHIFT [facility] Last Admin: 04/23/21 07:22 Dose: 3 ml Documented by: RONALDO Labs CBC & Chem 7: 04/29/21 10:06 05/02/21 06:52 Labs: Laboratory Results - last 24 hr 04/22/21 04/22/21 04/22/21 13:34 14:01 14:01 MCV 88.9 MCH 31.2 MCHC 35.1 H RDW 12.0 Plt Count 221 MPV 10.8 Immature Gran % (Auto) 0.4 Neut % (Auto) 53.2 Lymph % (Auto) 32.2 [place] % (Auto) 13.8 H Eos % (Auto) 0.2 Baso % (Auto) 0.2 Lymph # (Auto) 1.5 [place] # (Auto) 0.6 Eos # (Auto) 0.0 Baso # (Auto) 0.0 Abs Immat Gran (auto) 0.02 Absolute Neuts (auto) 2.4 Absolute Nucleated RBC 0.000 Nucleated RBC % (auto) 0.0 Anion Gap 16 Estim Creat Clear Calc 16.3 Estimated GFR 24 Random Glucose 124 H Lactic Acid Calcium 9.3 Total Bilirubin 0.3 AST 48 H ALT 90 H Alkaline Phosphatase 63 Troponin I High Sens Total Protein 6.9 Albumin 3.8 Lipase 793 H Urine Color Urine Appearance Urine pH Ur Specific [place] Urine Protein Urine Glucose (UA) Urine Ketones Urine Blood Urine Nitrite Ur Leukocyte Esterase Urine RBC Urine WBC Ur Squamous Epith Cells Urine Bacteria Stool Occult Blood COVID-19 ([facility]ACE) Positive A COVID-19 Clin Com See Note 04/22/21 04/22/21 04/22/21 14:01 14:35 14:55 MCV MCH MCHC RDW Plt Count MPV Immature Gran % (Auto) Neut % (Auto) Lymph % (Auto) [place] % (Auto) Eos % (Auto) Baso % (Auto) Lymph # (Auto) [place] # (Auto) Eos # (Auto) Baso # (Auto) Abs Immat Gran (auto) Absolute Neuts (auto) Absolute Nucleated RBC Nucleated RBC % (auto) Anion Gap Estim Creat Clear Calc Estimated GFR Random Glucose Lactic Acid 1.0 Calcium Total Bilirubin AST ALT Alkaline Phosphatase Troponin I High Sens 29.9 H Total Protein Albumin Lipase Urine Color Urine Appearance Urine pH Ur Specific [place] Urine Protein Urine Glucose (UA) Urine Ketones Urine Blood Urine Nitrite Ur Leukocyte Esterase Urine RBC Urine WBC Ur Squamous Epith Cells Urine Bacteria Stool Occult Blood NEGATIVE COVID-19 (GRACE) COVID-19 [employer] 04/22/21 04/22/21 04/22/21 15:08 16:02 17:17 MCV MCH MCHC RDW Plt Count MPV Immature Gran % (Auto) Neut % (Auto) Lymph % (Auto) [place] % (Auto) Eos % (Auto) Baso % (Auto) Lymph # (Auto) [place] # (Auto) Eos # (Auto) Baso # (Auto) Abs Immat Gran (auto) Absolute Neuts (auto) Absolute Nucleated RBC Nucleated RBC % (auto) Anion Gap 13 Estim Creat Clear Calc 19.4 Estimated GFR 29 Random Glucose 104 Lactic Acid Calcium 8.1 L D Total Bilirubin AST ALT Alkaline Phosphatase Troponin I High Sens 24.4 H Total Protein Albumin Lipase Urine Color YELLOW Urine Appearance CLEAR Urine pH 5.0 Ur Specific [place] 1.020 Urine Protein NEG Urine Glucose (UA) NEG Urine Ketones NEG Urine Blood NEG Urine Nitrite NEG Ur Leukocyte Esterase NEG Urine RBC 0 Urine WBC 0 Ur Squamous Epith Cells 1+ Urine Bacteria NONE Stool Occult Blood COVID-19 (GRACE) COVID-19 [employer] 04/23/21 04/23/21 06:35 06:35 MCV 90.0 MCH 31.1 MCHC 34.6 RDW 12.0 Plt Count 210 MPV 10.9 Immature Gran % (Auto) 0.4 Neut % (Auto) 74.7 H Lymph % (Auto) 17.5 L [place] % (Auto) 7.0 Eos % (Auto) 0.2 Baso % (Auto) 0.2 Lymph # (Auto) 1.0 L [place] # (Auto) 0.4 Eos # (Auto) 0.0 Baso # (Auto) 0.0 Abs Immat Gran (auto) 0.02 Absolute Neuts (auto) 4.2 Absolute Nucleated RBC 0.000 Nucleated RBC % (auto) 0.0 Anion Gap 15 Estim Creat Clear Calc 23.8 Estimated GFR 37 Random Glucose 128 H Lactic Acid Calcium 8.8 D Total Bilirubin AST ALT Alkaline Phosphatase Troponin I High Sens Total Protein Albumin Lipase Urine Color Urine Appearance Urine pH Ur Specific [place] Urine Protein Urine Glucose (UA) Urine Ketones Urine Blood Urine Nitrite Ur Leukocyte Esterase Urine RBC Urine WBC Ur Squamous Epith Cells Urine Bacteria Stool Occult Blood COVID-19 (GRACE) COVID-19 [employer] Com Assessment and Plan (1) PAULA (acute kidney injury): Status: Acute (2) Hyponatremia: Status: Acute (3) Hyperkalemia: Status: Acute (4) Acute dehydration: Status: Acute Assessment and Plan: 85-year-old female with past medical history of hypertension presents to the hospital with multiple issues including cephalopathy, congestion found to have COVID-19 pneumonia # toxic metabolic encephalopathy # restlessness Partially COVID, PAULA uremia And hyponatremia Sundowning, inpatient delirium head CT negative, no other evidence of infection UA negative, chest x-ray shows no infiltrate, afebrile recurrent reorientation Give hold all for restlessness # Dilated CBD with mild Lipase elevation normal bili, mild transaminitis CT, US as reported get GI eval # COVID-19 infection No hypoxia monitor respiratory status # PAULA Improving IV fluid follow BMP # hyponatremia Resolved # hyperkalemia Resolved # black stools no evidence of GI bleed, stool occult negative hemoglobin stable follow CBC # hypertension stable, will hold antihypertensives in the setting of soft BP DVT prophylaxis Heparin subQ Quality Stroke Does the patient have a stroke diagnosis?: No VTE Prior VTE?: No VTE Risk Level:: Medical - moderate - high VTE Device Contraindication: Treatment Not Indicated VTE Drug Contraindication: N/A - Med Ordered
[2021-04-23 13:44] VITALS: BP 137/59; PULSE 80; RESP 20; O2SAT 95
[2021-04-23] MEDS: QUEtiapine Fumarate 25 MG TABLET PO (13:46)
[2021-04-23 14:24] LABS: Alanine Aminotransferase 86 U/L (0-31); Albumin Level 3.4 g/dL (3.5-5.0); Alkaline Phosphatase 62 U/L (39-117); Aspartate Amino Transferase 56 U/L (5-31); Bilirubin Direct 0.2 mg/dL (0.0-0.5); Bilirubin Total 0.3 mg/dL (0.0-1.0)
[2021-04-23 19:05] VITALS: BP 139/65; PULSE 82; RESP 16; TEMP 36; O2SAT 96
--- NOTE | 2021-04-23 19:05 | PC.NURSE ---
Pt resting on stretcher in NAD, breathing with ease on RA. Pt awake, not alert or oriented, mumbling incoherent speech which was reported as pt's baseline since arrival. Pt appears in no pain/discomfort. Incontinence care provided, VSS on RA. Stretcher low locked, rails raised, red fall prevention socks on, camera at bedside to monitor pt.
[2021-04-23 19:08] LABS: Glucose, Whole Blood 116 mg/dL (60-115)
--- NOTE | 2021-04-23 21:47 | PC.NURSE ---
Pt restless on stretcher, stating please help me. Dr Salas aware, to order meds for to enable pt to have adequate rest and facilitate care.
--- NOTE | 2021-04-23 22:22 | PC.NURSE ---
Per Maritza, attempt EKG prior to additional meds.
[2021-04-23 22:48] VITALS: BP 147/85; PULSE 82; RESP 18; TEMP 36.3; O2SAT 95
--- NOTE | 2021-04-23 22:57 | PC.NURSE ---
EKG obtained, very poor tracing however QT/QTC obtained. Maritza TT image of EKG, states she cannot order haldol d/t prolonged reading. Per Maritza, if pt necessitates it, RN can obtain order for soft restraints at that time. this rn to give report to RN in overflow.
--- NOTE | 2021-04-23 22:57 | PC.NURSE ---
PATIENT WAS CHANGE AND REPOSITION PRIOR TO MOVING TO OVER FLOW .
--- NOTE | 2021-04-23 23:09 | PC.NURSE ---
Report given to Rima HOUSE in overflow
[2021-04-24 04:27] VITALS: RESP 16
[2021-04-24] MEDS: Heparin Sodium,Porcine 5,000 UNIT/ML VIAL 5000 UNIT SUBCUT ×2 (06:30→18:55)
[2021-04-24 07:14] LABS: Hematocrit 42.8 % (37.0-47.0); Hemoglobin 13.7 g/dl (12.0-16.0); Mean Corpuscular Hemoglobin 31.4 pg (27.0-33.0); Mean Corpuscular Volume 97.9 fL (80.0-98.0); Mean Platelet Volume 10.9 fL (9.4-12.3); Platelet Count 184 X10*3/uL (160-400); Red Blood Count 4.37 X10*6/uL (4.20-5.50); Red Cell Distribution Width 12.6 % (11.0-16.0); White Blood Count 8.8 X10*3/uL (4.8-10.8)
[2021-04-24 07:43] LABS: Alanine Aminotransferase 72 U/L (0-31); Albumin Level 3.2 g/dL (3.5-5.0); Alkaline Phosphatase 57 U/L (39-117); Anion Gap 15 (12-20); Aspartate Amino Transferase 54 U/L (5-31); Bilirubin Direct 0.2 mg/dL (0.0-0.5); Bilirubin Total 0.3 mg/dL (0.0-1.0); Blood Urea Nitrogen 39 mg/dL (9-16); Calcium 8.6 mg/dL (8.4-10.2); Carbon Dioxide 12 mmol/L (22-29); Chloride 114 mmol/L (96-108); Creatinine Clr Calc Pharmacy 25.7; Estimated Glomerular Filt Rate 40; Glucose Random 97 mg/dL (60-115); Lipase 48 U/L (8-78); Sodium 136 mmol/L (135-145); Total Protein 5.8 g/dL (6.5-8.0)
--- NOTE | 2021-04-24 08:19 | P.CNGI_ITS ---
History of Present Illness Data of Consult Service Date: 04/24/21 Requesting physician: Ness Morales Primary Care Provider: Mendez CANTU Reason for consult: melena, dilated cbd 85-year-old female with past medical history of PVD with a carotid artery occlusion status post left endarterectomy , congenital heart valve abnormality, hypertension who I am seeing for assessment for melena and dilated CBD No hx from patient, taken from notes. Patient admitted with confusion and delirium, with coughing and abdominal pain. Per chart patients daughter said patient had black stools but per nurse on floor no rectal bleeding or melena reported in hopsital. Labs revealed she was covid pos, with hyponatremia, renal insufficiency, and mild Ast, Alt elevation, lipase [address]? showed dilated common bile duct and mild intrahepatic biliary ductal dilatation, bilateral renal cysts, ?abdominal ultrasound showed common bile duct is dilated but no intrahepatic biliary ductal dilatation. ?? head CT shows no acute intracranial pathology ?chest x-ray shows no acute abnormality of the chest Review of Systems Review of Systems: Yes Unobtainable due to mental status Neurologic: Reports confusion Psychiatric: Psychiatric: Reports confusion [facility] Past Medical History Medical History (Updated 04/25/21 @ 07:05 by Jimenez Herrera MD) 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 HTN (hypertension) Family History Pertinent family history: no history of coronary artery disease Surgical History Surgical History (Updated 04/23/21 @ 05:43 by Fab Salas MD) No pertinent past surgical history Social History Social History Household Members: Family Housing: Unknown / Unable to assess Unable to assess alcohol history related to: Unable to respond Patient Tobacco Use Status: Tobacco use Unknown Advance Directives Date on File: 04/25/21 service: No Current occupational status: retired Meds Allergies Allergy/AdvReac Type Severity Reaction Status Date / Time Sulfa drugs Allergy Unknown Uncoded 05/29/18 00:00 Active Medications: Current Medications Acetaminophen (Acetaminophen 325 Mg Tablet) 650 mg PO Q6H PRN PRN Reason: Pain, Mild (Pain Scale 1-3) Heparin Sodium (Porcine) (Heparin Sodium,Porcine 5,000 Unit/Ml Vial) 5,000 unit SUBCUT Q12H [facility] Last Admin: 04/24/21 06:30 Dose: 5,000 unit Documented by: Sodium Chloride (Ns) 1,000 mls @ 100 mls/hr IVCONT .Q10H [facility] Last Admin: 04/23/21 22:52 Dose: 100 mls/hr Documented by: Ondansetron HCl (Ondansetron Hcl 4 Mg/2 Ml Vial) 4 mg IVPUSH Q8H PRN PRN Reason: Nausea and Vomiting Sodium Chloride (0.9 % Sodium Chloride Flush 3 Ml Syringe) 3 ml IVFLUSH QSHIFT [facility] Last Admin: 04/24/21 03:43 Dose: Not Given Documented by: Home Medications Medication Instructions Recorded Confirmed Last Taken Type amlodipine 10 mg tablet 1 tab PO DAILY 04/22/21 04/22/21 Unknown History carvedilol 25 mg tablet 1 tab PO BID 04/22/21 04/22/21 Unknown History chlorthalidone 25 mg tablet 1 tab PO DAILY 04/22/21 04/22/21 Unknown History chlorthalidone 25 mg tablet 1 tab PO DAILY 04/22/21 04/22/21 Unknown History Physical Exam Vital Signs: Vital Signs: Last Vital Signs Temp 97.4 F 04/23/21 22:48 Pulse 82 04/23/21 22:48 Resp 16 04/24/21 04:27 BP 147/85 H 04/23/21 22:48 Pulse Ox 95 04/23/21 22:48 BMI result Body Mass Index 20.1 Const: Other: Constitutional : Restless, delirious Neck : Normal inspection, Supple Cardiovascular : RRR, S1 S2, no lower extremity edema Respiratory : Fair bilateral air entry, no crackles, wheezes or rhonchi Gastrointestinal: soft, lax, Normal bowel sounds, Non tender Skin : Warm, Dry Neurological : No focal deficit, confused General: no acute distress, anxious, combative and confusion Nutritional Appearance: cachectic Orientation/consciousness: confusion Limitations: altered mental status HENMT: Head: Yes normal to inspection, Yes normocephalic and Yes atraumatic Ears: hearing grossly normal bilaterally, external ears normal, TM's normal bilaterally and EAC's normal General nose exam: Normal external nose present Face and sinus: Yes normal facial exam and Yes sinuses nontender Mouth: Normal oral and palatal mucosa present Throat: Yes posterior oropharynx normal Eyes: General: appearance normal, both eyes and all related structures Conjunctivae: conjunctivae normal Pupils: Equal, round and reactive pupils present EOM: EOMs intact bilaterally Neck: Neck: Yes full ROM, Yes no lymphadenopathy and Yes supple Resp: Effort & Inspection: normal respiratory effort and able to speak in complete sentences Auscultation: clear to auscultation bilaterally, no crackles, no rales, no rhonchi and no wheezes Cardio: Jugular venous distension: no JVD Rate: regular rate Rhythm: regular rhythm Heart sounds: S1 normal heart sound present and S2 normal heart sound present GI: Inspection: Yes normal to inspection Palpation (GI): Soft to palpation and not rigid Percussion: Yes normal to percussion Auscultation: normal bowel sounds Skin: General skin exam: no rashes or lesions noted Neuro: General: confusion Cranial nerves: Yes Equal, round and reactive pupils present Motor exam (neuro): no tremors and No Asterixis during motor activity present Extrem: General: Yes normal to inspection, Yes full ROM and Yes no pedal edema Psych: Mental Status: mental status grossly abnormal Speech and movement: Psychomotor agitation in speech present Affect: Anxious affect present and Irritable affect present Attitude: Belligerent attititude/behavior present Results Labs CBC & Chem 7: 04/24/21 06:59 04/24/21 06:59 Labs: Short CBC 04/24/21 Range/Units 06:59 WBC 8.8 (4.8-10.8) X10*3/uL Hgb 13.7 (12.0-16.0) g/dl Hct 42.8 (37.0-47.0) % Plt Count 184 (160-400) X10*3/uL BMP 04/24/21 04/24/21 06:59 06:59 Sodium Cancelled 136 Potassium Cancelled 5.0 Chloride Cancelled 114 H Carbon Dioxide Cancelled 12 L BUN Cancelled 39 H Creatinine Cancelled 1.26 Calcium Cancelled 8.6 Liver Function 04/23/21 04/24/21 Range/Units 06:35 06:59 Total Bilirubin 0.3 0.3 (0.0-1.0) mg/dL Direct Bilirubin 0.2 0.2 (0.0-0.5) mg/dL AST 56 H 54 H (5-31) U/L ALT 86 H 72 H (0-31) U/L Alkaline Phosphatase 62 57 (39-117) U/L Albumin 3.4 L 3.2 L (3.5-5.0) g/dL Microbiology Microbiology Results: Microbiology 04/22/21 14:35 Blood - Venous Blood Culture - Preliminary Prelim: GPC Gram Stain only 04/22/21 14:55 Blood - Venous Blood Culture - Preliminary No growth after 24 hours. Assessment and Plan (1) PAULA (acute kidney injury): Status: Acute (2) Hyponatremia: Status: Acute (3) Dilated cbd, acquired: Status: Acute 1/ Covid 19 pos patient with dilated CBD, mild abn LFT but not obstructive pattern most likely related to covid infection. Imaging without any focal lesion, stone or cancer, ddx: benign dilation of duct, stricture, neoplasia 2/ Possible melena, but HGb ahs been stable, no overt GI bleeding in house PLAN; 1/ Cont to trend LFT and HGB 2/ can add low dose PPi to rpevent stress ulceration 3/ if overt GI bleeding can decide on further intervention at the time 4/ MRI scan as o/p unless LFT worsen in house or concern for cholangitis etc Procedures Date of Service Date of Service: 04/24/21
--- NOTE | 2021-04-24 09:58 | PC.NURSE ---
Pt Alert, disoriented, when asked name her only response is Please help me . Unable to reorient at this time. Pt inc of urine, pericare along with morning care and linen change provided. IV fluids running as per MAR orders. Awaiting bed assignment, pt offers no complaints at this time, slight redness noted to coccyx, no open areas at this time. Will continue to monitor.
[2021-04-24 10:05] VITALS: BP 119/58; PULSE 60; RESP 17; TEMP 37.1; O2SAT 94
--- NOTE | 2021-04-24 11:56 | P.PNIM_ITS ---
Subjective Subjective Date of Service: 04/24/21 Interval History: Seen in f/u for confusion, very confused still, restless, spoke to daughter who was telling me that she has been having confusion at home and dementia has been questioned. Review of Systems Review of Systems: Yes all other systems are reviewed and are negative Physical Exam Vital Signs: Vital Signs: Last Vital Signs Temp 98.7 F 04/24/21 10:05 Pulse 60 04/24/21 10:05 Resp 17 04/24/21 10:05 BP 119/58 L 04/24/21 10:05 Pulse Ox 94 04/24/21 10:05 BMI result Body Mass Index 20.1 Const: Other: Constitutional : Restless, confused Neck : Normal inspection, Supple Cardiovascular : RRR, S1 S2, no lower extremity edema Respiratory : Fair bilateral air entry, no crackles, wheezes or rhonchi Gastrointestinal: soft, lax, Normal bowel sounds, Non tender Skin : Warm, Dry Neurological : Answering but not following orders, very, confused about time and place No focal deficit Objective Data Active Medications Acetaminophen (Acetaminophen 325 Mg Tablet) 650 mg PO Q6H PRN PRN Reason: Pain, Mild (Pain Scale 1-3) Heparin Sodium (Porcine) (Heparin Sodium,Porcine 5,000 Unit/Ml Vial) 5,000 unit SUBCUT Q12H [facility] Last Admin: 04/24/21 06:30 Dose: 5,000 unit Documented by: ROMELIA Sodium Chloride (Ns) 1,000 mls @ 100 mls/hr IVCONT .Q10H [facility] Last Admin: 04/23/21 22:52 Dose: 100 mls/hr Documented by: SATNAM Ondansetron HCl (Ondansetron Hcl 4 Mg/2 Ml Vial) 4 mg IVPUSH Q8H PRN PRN Reason: Nausea and Vomiting Sodium Chloride (0.9 % Sodium Chloride Flush 3 Ml Syringe) 3 ml IVFLUSH QSHIFT [facility] Last Admin: 04/24/21 09:40 Dose: Not Given Documented by: OMAYRA Non-Admin Reason: IV Running Labs CBC & Chem 7: 04/24/21 06:59 04/24/21 06:59 Labs: Laboratory Results - last 24 hr 04/23/21 04/23/21 04/24/21 06:35 18:59 06:59 MCV 97.9 D MCH 31.4 MCHC 32.0 RDW 12.6 Plt Count 184 MPV 10.9 Absolute Nucleated RBC 0.000 Nucleated RBC % (auto) 0.0 Anion Gap Estim Creat Clear Calc Estimated GFR POC Glucose 116 H Random Glucose Calcium Total Bilirubin 0.3 Direct Bilirubin 0.2 AST 56 H ALT 86 H Alkaline Phosphatase 62 Total Protein 6.0 L Albumin 3.4 L Lipase 04/24/21 04/24/21 06:59 06:59 MCV MCH MCHC RDW Plt Count MPV Absolute Nucleated RBC Nucleated RBC % (auto) Anion Gap Cancelled 15 Estim Creat Clear Calc Cancelled 25.7 Estimated GFR Cancelled 40 POC Glucose Random Glucose Cancelled 97 Calcium Cancelled 8.6 Total Bilirubin 0.3 Direct Bilirubin 0.2 AST 54 H ALT 72 H Alkaline Phosphatase 57 Total Protein 5.8 L Albumin 3.2 L Lipase 48 Microbiology Microbiology Results: Microbiology 04/22/21 14:35 Blood Culture - Preliminary Blood - Venous Staphylococcus species 04/22/21 14:55 Blood Culture - Preliminary Blood - Venous No growth after 24 hours. Assessment and Plan (1) PAULA (acute kidney injury): Status: Acute (2) Hyponatremia: Status: Acute (3) Hyperkalemia: Status: Acute (4) Acute dehydration: Status: Acute Assessment and Plan: 85-year-old female with past medical history of hypertension presents to the hospital with multiple issues including cephalopathy, congestion found to have COVID-19 pneumonia # Toxic metabolic encephalopathy # Delerium # restlessness - Partially COVID, PAULA uremia And hyponatremia Sundowning, inpatient delirium head CT negative, no other evidence of infection UA negative, chest x-ray shows no infiltrate, afebrile recurrent reorientation suppoertive care, Psychotropics for exteme agitation # Dilated CBD with mild Lipase elevation normal bili, mild transaminitis CT, US as reported get GI eval # COVID-19 infection No hypoxia monitor respiratory status # PAULA Improving IV fluid follow BMP # hyponatremia Resolved # hyperkalemia Resolved # black stools no evidence of GI bleed, stool occult negative hemoglobin stable follow CBC GI recommends no intervention # hypertension stable, will hold antihypertensives in the setting of soft BP #Metabolic acidosis--renal consult DVT prophylaxis Heparin subQ Quality Stroke Does the patient have a stroke diagnosis?: No VTE Prior VTE?: No VTE Risk Level:: Medical - moderate - high VTE Device Contraindication: Treatment Not Indicated VTE Drug Contraindication: N/A - Med Ordered
[2021-04-24 12:35] VITALS: BP 131/43; PULSE 85; RESP 20; O2SAT 98
--- NOTE | 2021-04-24 12:38 | MHC.CM.PN ---
PATIENT IS ALERT ONLY TO SELF SHE IS UNABLE TO IDENTIFY WHO SHE LIVES WITH. SHE ONLY ASKS PLEASE HELP ME . CONTACT NUMBER FOR DAUGHTER DANNY OF [phone] IS INCORRECT NUMBER (PERSON ANSWERS AND TELLS CM THAT IT IS WRONG NUMBER) ANOTHER NUMBER FOUND [phone] AND IT IS NO LONGER A WORKING NUMBER FIRST ATTEMPT AT IMM DELIVERY UNSUCCESSFUL. CASE MANAGEMENT TO CONTINUE TO FOLLOW
--- NOTE | 2021-04-24 13:27 | PC.NURSE ---
Pt inc of urine, pericare and linen change provided, pt more alert at this time, speaking, but confused at this time. Video sitter in place, bed alarm on, will continue to monitor.
[2021-04-24] MEDS: 0.9 % Sodium Chloride 1,000 ML 100 ML IVCONT (16:08)
[2021-04-24 17:03] VITALS: PULSE 72; RESP 16; TEMP 36.7; O2SAT 97
--- NOTE | 2021-04-24 17:04 | PC.NURSE ---
PATIENT WAS CHECK ,PATIENT ID DRY AT THIS TIME .
--- NOTE | 2021-04-24 17:38 | PM.CNNEP ---
History of Present Illness Reason for Consult Consult date: 04/24/21 Reason for consult: Hyponatremia/ PAULA Chief Complaint Chief complaint: Covid 19 encephalopathy History of Present Illness Narrative: 85 yr old woman with PVD and HTN , brought in with black stools COVID 19 positive Sodium was 127 and with PAULA - creatinine of 1.9 and hence this consultation [facility] Past Medical History Medical History (Updated 04/25/21 @ 07:05 by Jimenez Herrera MD) 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 HTN (hypertension) Surgical History Surgical History (Updated 04/23/21 @ 05:43 by Fab Salas MD) No pertinent past surgical history Social History Social History Household Members: Family Housing: Unknown / Unable to assess Unable to assess alcohol history related to: Unable to respond Patient Tobacco Use Status: Tobacco use Unknown Advance Directives Date on File: 04/25/21 service: No Current occupational status: retired Meds Allergies Allergy/AdvReac Type Severity Reaction Status Date / Time Sulfa drugs Allergy Unknown Uncoded 05/29/18 00:00 Active Medications: Current Medications Acetaminophen (Acetaminophen 325 Mg Tablet) 650 mg PO Q6H PRN PRN Reason: Pain, Mild (Pain Scale 1-3) Heparin Sodium (Porcine) (Heparin Sodium,Porcine 5,000 Unit/Ml Vial) 5,000 unit SUBCUT Q12H [facility] Last Admin: 04/24/21 06:30 Dose: 5,000 unit Documented by: Sodium Chloride (Ns) 1,000 mls @ 100 mls/hr IVCONT .Q10H [facility] Last Admin: 04/24/21 16:08 Dose: 100 mls/hr Documented by: Ondansetron HCl (Ondansetron Hcl 4 Mg/2 Ml Vial) 4 mg IVPUSH Q8H PRN PRN Reason: Nausea and Vomiting Sodium Chloride (0.9 % Sodium Chloride Flush 3 Ml Syringe) 3 ml IVFLUSH QSHIFT [facility] Last Admin: 04/24/21 16:11 Dose: Not Given Documented by: Home Medications Medication Instructions Recorded Confirmed Last Taken Type amlodipine 10 mg tablet 1 tab PO DAILY 04/22/21 04/22/21 Unknown History carvedilol 25 mg tablet 1 tab PO BID 04/22/21 04/22/21 Unknown History chlorthalidone 25 mg tablet 1 tab PO DAILY 04/22/21 04/22/21 Unknown History chlorthalidone 25 mg tablet 1 tab PO DAILY 04/22/21 04/22/21 Unknown History Physical Exam Vital Signs: Last Vital Signs Temp 98.1 F 04/24/21 17:03 Pulse 72 04/24/21 17:03 Resp 16 04/24/21 17:03 BP 131/43 L 04/24/21 12:35 Pulse Ox 97 04/24/21 17:03 BMI result Body Mass Index 20.1 Const General: ill appearing Neck Neck: Yes supple and Yes no JVD Resp Auscultation: rhonchi and diminished lung sounds Cardio Jugular venous distension: no JVD Heart sounds: no click, no murmurs and no rubs Skin General skin exam: no rashes or lesions noted Neuro Motor exam (neuro): no tremors and No Asterixis during motor activity present Results Lab Results Result Diagrams: 04/24/21 06:59 04/25/21 11:23 Lab results: Chemistry 04/22/21 04/22/21 04/23/21 14:01 16:02 06:35 Sodium 127 L 129 L 134 L Potassium 5.7 H 5.2 H 5.1 Carbon Dioxide 20 L 18 L 17 L BUN 57 H 53 H 44 H Creatinine 1.98 H 1.67 H 1.36 Calcium 9.3 8.1 L D 8.8 D 04/24/21 04/24/21 06:59 06:59 Sodium Cancelled 136 Potassium Cancelled 5.0 Carbon Dioxide Cancelled 12 L BUN Cancelled 39 H Creatinine Cancelled 1.26 Calcium Cancelled 8.6 Hematology 04/22/21 04/23/21 04/24/21 14:01 06:35 06:59 WBC 4.6 L 5.6 8.8 Hgb 14.1 14.7 13.7 Plt Count 221 210 184 Urinalysis 04/22/21 15:08 Urine Color YELLOW Urine Appearance CLEAR Urine pH 5.0 Ur Specific [place] 1.020 Urine Protein NEG Urine Glucose (UA) NEG Urine Ketones NEG Urine Blood NEG Urine Nitrite NEG Ur Leukocyte Esterase NEG Urine RBC 0 Urine WBC 0 Ur Squamous Epith Cells 1+ Assessment and Plan (1) PAULA (acute kidney injury): Status: Acute HYpotonic hyponatremia Most likley due to hypovolemia PAULA due to volume depletion Na has gradually increased to 135 at the time of this consultation Creatinine is down to 1.26 Clinically she appears dry Keep I > O with NS Expect renal recovery Procedures Date of Service Date of Service: 04/24/21
[2021-04-24 20:00] VITALS: PULSE 80; RESP 18; TEMP 36.8; O2SAT 96
[2021-04-24 23:03] VITALS: BP 96/66; PULSE 68; RESP 18; TEMP 37; O2SAT 96
[2021-04-25 03:25] VITALS: BP 90/44; PULSE 51; RESP 18; TEMP 36.6; O2SAT 95
[2021-04-25] MEDS: 0.9 % Sodium Chloride 1,000 ML 100 ML IVCONT ×2 (05:31→14:04)
[2021-04-25] MEDS: Heparin Sodium,Porcine 5,000 UNIT/ML VIAL 5000 UNIT SUBCUT ×2 (05:31→16:45)
[2021-04-25 07:49] VITALS: BP 92/48; PULSE 56; RESP 19; TEMP 36.8; O2SAT 94
[2021-04-25 11:08] VITALS: BP 95/50; PULSE 58; RESP 19; TEMP 36.6; O2SAT 93
--- NOTE | 2021-04-25 11:12 | P.PNIM_ITS ---
Subjective Subjective Date of Service: 04/25/21 Interval History: Seen in f/u for confusion, patient remains confused, restless, seem just a little better today. Review of Systems Unable to provide any meaningful answers, denies pain though Physical Exam Vital Signs: Vital Signs: Last Vital Signs Temp 97.8 F 04/25/21 11:08 Pulse 58 04/25/21 11:08 Resp 19 04/25/21 11:08 BP 95/50 L 04/25/21 11:08 Pulse Ox 93 04/25/21 11:08 BMI result Body Mass Index 20.1 Const: Other: Constitutional : Restless, delirous Neck : Normal inspection, Supple Cardiovascular : RRR, S1 S2, no lower extremity edema Respiratory : Fair bilateral air entry, no crackles, wheezes or rhonchi Gastrointestinal: soft, lax, Normal bowel sounds, Non tender Skin : Warm, Dry Neurological : No focal deficit, confused Objective Data Active Medications Acetaminophen (Acetaminophen 325 Mg Tablet) 650 mg PO Q6H PRN PRN Reason: Pain, Mild (Pain Scale 1-3) Heparin Sodium (Porcine) (Heparin Sodium,Porcine 5,000 Unit/Ml Vial) 5,000 unit SUBCUT Q12H [facility] Last Admin: 04/25/21 05:31 Dose: 5,000 unit Documented by: DAVIN Sodium Chloride (Ns) 1,000 mls @ 100 mls/hr IVCONT .Q10H [facility] Last Admin: 04/25/21 05:31 Dose: 100 mls/hr Documented by: DAVIN Ondansetron HCl (Ondansetron Hcl 4 Mg/2 Ml Vial) 4 mg IVPUSH Q8H PRN PRN Reason: Nausea and Vomiting Sodium Chloride (0.9 % Sodium Chloride Flush 3 Ml Syringe) 3 ml IVFLUSH QSHIFT [facility] Last Admin: 04/25/21 09:36 Dose: Not Given Documented by: DYANA Non-Admin Reason: NO iv Labs CBC & Chem 7: 04/24/21 06:59 04/24/21 06:59 Microbiology Microbiology Results: Microbiology 04/22/21 14:35 Blood Culture - Final Blood - Venous Coag negative Staphylococcus 04/22/21 14:55 Blood Culture - Preliminary Blood - Venous No growth after 48 hours. Assessment and Plan (1) PAULA (acute kidney injury): Status: Acute (2) Hyponatremia: Status: Acute (3) Hyperkalemia: Status: Acute (4) Acute dehydration: Status: Acute Assessment and Plan: 85-year-old female with past medical history of hypertension presents to the hospital with multiple issues including cephalopathy, congestion found to have COVID-19 pneumonia # Toxic metabolic encephalopathy # Delerium # restlessness - Partially d/t COVID, PAULA uremia And hyponatremia Sundowning, inpatient delirium head CT negative, no other evidence of infection UA negative, chest x-ray shows no infiltrate, afebrile frequent reorientation suppoertive care, Psychotropics for extreme agitation # Dilated CBD with mild Lipase elevation normal bili, mild transaminitis CT, US as reported get GI eval possible MRI on outpatient basiss # COVID-19 infection No hypoxia monitor respiratory status # PAULA Improving IV fluid follow BMP # hyponatremia Resolved # hyperkalemia Resolved # black stools no evidence of GI bleed, stool occult negative hemoglobin stable follow CBC GI recommends no intervention # hypertension stable, will hold antihypertensives in the setting of soft BP #Metabolic acidosis--renal consult, repeat lab today DVT prophylaxis Heparin subQ Will discuss with daughter again Quality Stroke Does the patient have a stroke diagnosis?: No VTE Prior VTE?: No VTE Risk Level:: Medical - moderate - high VTE Device Contraindication: Treatment Not Indicated VTE Drug Contraindication: N/A - Med Ordered
[2021-04-25 12:20] LABS: Anion Gap 17 (12-20); Blood Urea Nitrogen 39 mg/dL (9-16); Calcium 9.1 mg/dL (8.4-10.2); Carbon Dioxide 17 mmol/L (22-29); Chloride 113 mmol/L (96-108); Creatinine Clr Calc Pharmacy 26.9; Estimated Glomerular Filt Rate 43; Glucose Random 93 mg/dL (60-115); Potassium 4.8 mmol/L (3.3-5.1); Sodium 142 mmol/L (135-145)
[2021-04-25] MEDS: 0.9 % Sodium Chloride 1,000 ML 125 ML IVCONT (14:02)
--- NOTE | 2021-04-25 15:30 | PC.NURSE ---
Spoke with patient's daughter, she requested to speak with her doctor. paged with daughters number. Pt turned and repositioned every two hours. Incontinent of urine , purwick placed and barrier cream applied to coccyx area. Patients mouth extremely dry, mouth swabs used and chapstick q 2 hours. Patient pushing away caregivers when providing care. Resting quietly at present.
[2021-04-25 15:44] VITALS: BP 96/50; PULSE 84; RESP 18; TEMP 36.3; O2SAT 97
--- NOTE | 2021-04-25 18:49 | P.PNNP_ITS ---
Subjective Subjective Date of Service: 05/12/21 Interval history: Events noted Unable to give ROs Confused Physical Exam Verdana 4l Vital Signs: Verdana 4d Verdana 4d Vital Signs: Verdana 4d Verdana 4Bd Last Vital Signs Verdana 4d Animal Care Service Worker New 4d Animal Care Service Worker New 4d Temp 97.4 F 04/25/21 15:44 Animal Care Service Worker New 4d Pulse 84 04/25/21 15:44 Animal Care Service Worker New 4d Resp 18 04/25/21 15:44 BP 96/50 L 04/25/21 15:44 Pulse Ox 97 04/25/21 15:44 BMI result Body Mass Index 20.1 Const: General: ill appearing Neck: Neck: Yes supple and Yes no JVD Resp: Auscultation: rhonchi and diminished lung sounds Cardio: Jugular venous distension: no JVD Heart sounds: no click, no murmurs and no rubs Skin: General skin exam: no rashes or lesions noted Neuro: Motor exam (neuro): no tremors and No Asterixis during motor activity present Objective Data Labs CBC & Chem 7: 04/29/21 10:06 05/02/21 06:52 Labs: Laboratory Results - last 24 hr 04/25/21 11:23 Sodium 142 Potassium 4.8 Chloride 113 H Carbon Dioxide 17 L Anion Gap 17 BUN 39 H Creatinine 1.20 Estim Creat Clear Calc 26.9 Estimated GFR 43 Random Glucose 93 Calcium 9.1 Microbiology Microbiology Results: Microbiology 04/22/21 14:35 Blood - Venous Blood Culture - Final Coag negative Staphylococcus 04/22/21 14:55 Blood - Venous Blood Culture - Preliminary No growth after 48 hours. Procedures Date of Service Date of Service: 05/26/21 Assessment & Plan Assessment and plan (1) PAULA (acute kidney injury): Status: Resolved Plan HYpotonic hyponatremia Most neal due to hypovolemia Has CKD4 at baseline PAULA due to volume depletion Na has gradually increased to 135 at the time of this consultation Creatinine is down to 1.26 Clinically she appears dry Keep I > O Can switch to 1/2NS if pNa increases >145 supportive care Time Spent With Patient Time: Total time spent is greater than 50% in coordination of care (as documented) at patient's floor/unit and/or counseling patient: Time with patient: 15 - 24 minutes Progress Note: Quality Stroke Does the patient have a stroke diagnosis?: No
[2021-04-25 20:00] VITALS: BP 136/75; PULSE 90; RESP 18; TEMP 36.8; O2SAT 97
[2021-04-25 23:33] VITALS: BP 118/57; PULSE 95; RESP 19; TEMP 37.6; O2SAT 98
[2021-04-26] MEDS: 0.9 % Sodium Chloride Flush 3 ML SYRINGE IVFLUSH ×3 (00:44→22:35)
[2021-04-26] MEDS: 0.9 % Sodium Chloride 1,000 ML 125 ML IVCONT ×2 (00:44→09:18)
[2021-04-26 03:39] VITALS: BP 104/62; PULSE 88; RESP 20; TEMP 36.8; O2SAT 99
[2021-04-26] MEDS: Heparin Sodium,Porcine 5,000 UNIT/ML VIAL 5000 UNIT SUBCUT ×2 (05:54→17:04)
[2021-04-26 08:56] VITALS: BP 143/77; PULSE 98; RESP 18; TEMP 36.1; O2SAT 96
[2021-04-26 09:50] LABS: Anion Gap 18 (12-20); Blood Urea Nitrogen 43 mg/dL (9-16); Calcium 8.8 mg/dL (8.4-10.2); Carbon Dioxide 15 mmol/L (22-29); Chloride 118 mmol/L (96-108); Creatinine Clr Calc Pharmacy 24.5; Estimated Glomerular Filt Rate 38; Glucose Random 103 mg/dL (60-115); Potassium 4.7 mmol/L (3.3-5.1); Sodium 146 mmol/L (135-145)
[2021-04-26 11:18] VITALS: BP 150/85; PULSE 101; RESP 23; O2SAT 99
--- NOTE | 2021-04-26 11:27 | PM.PNNEP ---
Subjective Subjective Date of Service: 04/26/21 Interval history: Events noted, seen and examined Physical Exam Vital Signs: Vital Signs: Last Vital Signs Temp 97 F 04/26/21 08:56 Pulse 101 H 04/26/21 11:18 Resp 23 H 04/26/21 11:18 BP 150/85 H 04/26/21 11:18 Pulse Ox 99 04/26/21 11:18 BMI result Body Mass Index 20.1 Const: General: ill appearing Neck: Neck: Yes supple and Yes no JVD Resp: Auscultation: rhonchi and diminished lung sounds Cardio: Jugular venous distension: no JVD Heart sounds: no click, no murmurs and no rubs Skin: General skin exam: no rashes or lesions noted Neuro: Motor exam (neuro): no tremors and No Asterixis during motor activity present Objective Data Labs CBC & Chem 7: 04/24/21 06:59 04/26/21 08:41 Labs: Laboratory Results - last 24 hr 04/25/21 04/26/21 11:23 08:41 Sodium 142 146 H Potassium 4.8 4.7 Chloride 113 H 118 H Carbon Dioxide 17 L 15 L Anion Gap 17 18 BUN 39 H 43 H Creatinine 1.20 1.32 Estim Creat Clear Calc 26.9 24.5 Estimated GFR 43 38 Random Glucose 93 103 Calcium 9.1 8.8 Microbiology Microbiology Results: Microbiology 04/22/21 14:35 Blood - Venous Blood Culture - Final Coag negative Staphylococcus 04/22/21 14:55 Blood - Venous Blood Culture - Preliminary No growth after 48 hours. Procedures Date of Service Date of Service: 04/26/21 Assessment & Plan Assessment and plan (1) PAULA (acute kidney injury): Status: Acute Assessment and Plan: 1. HypoNA: grad imporved and now mild hyoerNa 2. PAULA: resolved 3. CKD 3 w SCr at [facility] 4. AMS: ques bsl 5. NAGMA: ques diarrhea REC: change IVF to 1/2 NA; track renal func and HCO3; may need NaHCO3 replacement if does not icr Time Spent With Patient Time: Total time spent is greater than 50% in coordination of care (as documented) at patient's floor/unit and/or counseling patient: Progress Note: Quality Stroke Does the patient have a stroke diagnosis?: No
[2021-04-26] MEDS: Dextrose 5 % and 0.45 % NaCl 1,000 ML 125 ML IVCONT ×2 (12:59→22:35)
--- NOTE | 2021-04-26 13:34 | HO.PM.IMPN ---
Subjective Subjective Date of Service: 04/26/21 Interval History: f/u on ecnephalopathy, she remains very confused and not able to follow commands Review of Systems Unable to provide any meaningful answers, denies pain though Physical Exam Vital Signs: Vital Signs: Last Vital Signs Temp 97 F 04/26/21 08:56 Pulse 101 H 04/26/21 11:18 Resp 23 H 04/26/21 11:18 BP 150/85 H 04/26/21 11:18 Pulse Ox 99 04/26/21 11:18 BMI result Body Mass Index 20.1 Const: Other: Constitutional : Restless, delirous Neck : Normal inspection, Supple Cardiovascular : RRR, S1 S2, no lower extremity edema Respiratory : Fair bilateral air entry, no crackles, wheezes or rhonchi Gastrointestinal: soft, lax, Normal bowel sounds, Non tender Skin : Warm, Dry Neurological : No focal deficit, confused Objective Data Active Medications Acetaminophen (Acetaminophen 325 Mg Tablet) 650 mg PO Q6H PRN PRN Reason: Pain, Mild (Pain Scale 1-3) Heparin Sodium (Porcine) (Heparin Sodium,Porcine 5,000 Unit/Ml Vial) 5,000 unit SUBCUT Q12H [facility] Last Admin: 04/26/21 05:54 Dose: 5,000 unit Documented by: BERNARDINO Dextrose/Sodium Chloride (D51/2ns) 1,000 mls @ 125 mls/hr IVCONT .Q8H [facility] Last Admin: 04/26/21 12:59 Dose: 125 mls/hr Documented by: AYAKA Ondansetron HCl (Ondansetron Hcl 4 Mg/2 Ml Vial) 4 mg IVPUSH Q8H PRN PRN Reason: Nausea and Vomiting Sodium Chloride (0.9 % Sodium Chloride Flush 3 Ml Syringe) 3 ml IVFLUSH QSHIFT [facility] Last Admin: 04/26/21 09:19 Dose: 3 ml Documented by: AYAKA Labs CBC & Chem 7: 04/24/21 06:59 04/26/21 08:41 Labs: Laboratory Results - last 24 hr 04/26/21 08:41 Anion Gap 18 Estim Creat Clear Calc 24.5 Estimated GFR 38 Random Glucose 103 Calcium 8.8 Assessment and Plan (1) PAULA (acute kidney injury): Status: Acute (2) Hyponatremia: Status: Acute (3) Hyperkalemia: Status: Acute (4) Acute dehydration: Status: Acute Assessment and Plan: 85-year-old female with past medical history of hypertension presents to the hospital with multiple issues including cephalopathy, congestion found to have COVID-19 pneumonia # Toxic metabolic encephalopathy # Delerium # restlessness - Probably d/t COVID, PAULA uremia And hyponatremia with underlying dementia head CT negative, no evidence of infection UA negative, chest x-ray shows no infiltrate, afebrile frequent reorientation suppoertive care, Psychotropics for extreme agitation # Dilated CBD with mild Lipase elevation normal bili, mild transaminitis CT, US as reported get GI eval possible MRI on outpatient basiss # COVID-19 infection No hypoxia monitor respiratory status # PAULA Improving IV fluid follow BMP # hyponatremia Resolved # hyperkalemia Resolved # black stools no evidence of GI bleed, stool occult negative hemoglobin stable follow CBC GI recommends no intervention # hypertension stable, will hold antihypertensives in the setting of soft BP #Metabolic acidosis--unclear etiology, improving with IVF, may need bicab #Hypernatremia-- mild probably from NS, change to half normal saline and recheck later DVT prophylaxis Heparin subQ Will discuss with daughter again Quality Stroke Does the patient have a stroke diagnosis?: No VTE Prior VTE?: No VTE Risk Level:: Medical - moderate - high VTE Device Contraindication: Treatment Not Indicated VTE Drug Contraindication: N/A - Med Ordered
[2021-04-26 16:00] VITALS: BP 166/70; PULSE 98; RESP 18; TEMP 36.8; O2SAT 95
[2021-04-26 18:52] LABS: Anion Gap 14 (12-20); Carbon Dioxide 18 mmol/L (22-29); Chloride 119 mmol/L (96-108); Potassium 4.5 mmol/L (3.3-5.1); Sodium 146 mmol/L (135-145)
[2021-04-26 20:00] VITALS: BP 113/65; PULSE 87; RESP 16; TEMP 36.8; O2SAT 95
[2021-04-27] VITALS (7 sets, daily range): BP systolic 99–148; BP diastolic 59–69; PULSE 56–101; RESP 14–20; TEMP 36.1–37.1; O2SAT 94–99
[2021-04-27] MEDS: Heparin Sodium,Porcine 5,000 UNIT/ML VIAL 5000 UNIT SUBCUT ×2 (04:54→17:13)
--- NOTE | 2021-04-27 05:14 | MHC.PIE ---
Patient lethargic, arousable, moans, unable to assess orientation. Mouth remains open, apears bloody - rigorous mouth care done with suction. Patient very resistant. Coughing with care. Patient remains NPO.
[2021-04-27] MEDS: Dextrose 5 % and 0.45 % NaCl 1,000 ML 125 ML IVCONT (06:44)
[2021-04-27] MEDS: Dextrose 5 % 1,000 ML 125 ML IVCONT ×3 (09:26→21:06)
[2021-04-27 09:44] LABS: Anion Gap 10 (12-20); Blood Urea Nitrogen 39 mg/dL (9-16); Calcium 8.9 mg/dL (8.4-10.2); Carbon Dioxide 19 mmol/L (22-29); Chloride 117 mmol/L (96-108); Creatinine Clr Calc Pharmacy 27.2; Estimated Glomerular Filt Rate 43; Glucose Random 213 mg/dL (60-115); Potassium 3.7 mmol/L (3.3-5.1); Sodium 142 mmol/L (135-145)
--- NOTE | 2021-04-27 11:50 | MHC.CLN ---
RE: CONSULT PT IS DAY 5 NPO DISCUSSED WITH MD YI PPN AT THIS TIME MD TO DISCUSS GOAL OF CARE WITH FAMILY CONSULT RD IF PPN/TPN NEEDED FOLLOWING WITH TEAM
[2021-04-28] VITALS (7 sets, daily range): BP systolic 111–122; BP diastolic 50–67; PULSE 69–88; RESP 16–24; TEMP 35.9–36.7; O2SAT 95–100
[2021-04-28] MEDS: 0.9 % Sodium Chloride Flush 3 ML SYRINGE IVFLUSH ×3 (00:44→21:11)
[2021-04-28] MEDS: Dextrose 5 % 1,000 ML 125 ML IVCONT ×3 (02:42→21:43)
[2021-04-28] MEDS: Heparin Sodium,Porcine 5,000 UNIT/ML VIAL 5000 UNIT SUBCUT ×2 (05:47→17:52)
[2021-04-28 08:44] LABS: Anion Gap 11 (12-20); Blood Urea Nitrogen 32 mg/dL (9-16); Calcium 8.8 mg/dL (8.4-10.2); Carbon Dioxide 17 mmol/L (22-29); Chloride 111 mmol/L (96-108); Creatinine Clr Calc Pharmacy 30.3; Estimated Glomerular Filt Rate 49; Glucose Random 130 mg/dL (60-115); Potassium 3.6 mmol/L (3.3-5.1); Sodium 135 mmol/L (135-145)
--- NOTE | 2021-04-28 11:15 | P.PNIM_ITS ---
Subjective Subjective Date of Service: 04/28/21 Interval History: f/u encephlopathy and covid, more alert Review of Systems no fever no sob confusion Physical Exam Vital Signs: Vital Signs: Last Vital Signs Temp 98.1 F 04/28/21 07:19 Pulse 76 04/28/21 07:19 Resp 24 H 04/28/21 07:19 BP 118/56 L 04/28/21 07:19 Pulse Ox 100 04/28/21 07:19 BMI result Body Mass Index 20.1 Const: Other: Other:?Constitutional : awake, confusd Neck : Normal inspection, Supple Cardiovascular : RRR, S1 S2, no lower extremity edema Respiratory : Fair bilateral air entry,? no crackles, wheezes or rhonchi Gastrointestinal:? soft, lax, Normal bowel sounds, Non tender Skin : Warm, Dry Neurological :? No focal deficit, confused Objective Data Active Medications Acetaminophen (Acetaminophen 325 Mg Tablet) 650 mg PO Q6H PRN PRN Reason: Pain, Mild (Pain Scale 1-3) Heparin Sodium (Porcine) (Heparin Sodium,Porcine 5,000 Unit/Ml Vial) 5,000 unit SUBCUT Q12H [facility] Last Admin: 04/28/21 05:47 Dose: 5,000 unit Documented by: SOILA Dextrose (D5w) 1,000 mls @ 125 mls/hr IVCONT .Q8H [facility] Last Admin: 04/28/21 02:42 Dose: 125 mls/hr Documented by: SOILA Ondansetron HCl (Ondansetron Hcl 4 Mg/2 Ml Vial) 4 mg IVPUSH Q8H PRN PRN Reason: Nausea and Vomiting Sodium Chloride (0.9 % Sodium Chloride Flush 3 Ml Syringe) 3 ml IVFLUSH QSHIFT [facility] Last Admin: 04/28/21 08:34 Dose: Not Given Documented by: BENJAMIN Non-Admin Reason: IV Running Labs CBC & Chem 7: 04/24/21 06:59 04/28/21 08:22 Labs: Laboratory Results - last 24 hr 04/28/21 08:22 Anion Gap 11 L Estim Creat Clear Calc 30.3 Estimated GFR 49 Random Glucose 130 H Calcium 8.8 Microbiology Microbiology Results: Microbiology 04/22/21 14:55 Blood Culture - Final Blood - Venous No growth after 5 days. Assessment and Plan (1) PAULA (acute kidney injury): Status: Acute (2) Hyponatremia: Status: Acute (3) Hyperkalemia: Status: Acute (4) Acute dehydration: Status: Acute Assessment and Plan: 85-year-old female with past medical history of hypertension presents to the hospital with multiple issues including cephalopathy, congestion found to have COVID-19 pneumonia # Toxic metabolic encephalopathy # Delerium # restlessness - Probably d/t COVID, PAULA uremia And hyponatremia with underlying dementia and ativan head CT negative, no evidence of infection UA negative, chest x-ray shows no infiltrate, afebrile frequent reorientation suppoertive care, Psychotropics for extreme agitation. AVOID BENZO #Dilated CBD with mild Lipase elevation normal bili, mild transaminitis CT, US as reported get GI eval possible MRI on outpatient basiss # COVID-19 infection No hypoxia, sating 100 on room # PAULA--d/t dehydration, resolved. # hyponatremia Resolved # hyperkalemia Resolved # black stools no evidence of GI bleed, stool occult negative hemoglobin stable follow CBC GI recommends no intervention # hypertension stable, will hold antihypertensives in the setting of soft BP #Metabolic acidosis--unclear etiology, improved, doesn't need bicab #Hypernatremia-- mild probably from NS, change to half normal saline and recheck later, resolved #BSE today, diet per nutrition. I talked to daughter at bedside and updated her DVT prophylaxis Heparin subQ Quality Stroke Does the patient have a stroke diagnosis?: No VTE Prior VTE?: No VTE Risk Level:: Medical - moderate - high VTE Device Contraindication: Treatment Not Indicated VTE Drug Contraindication: N/A - Med Ordered
--- NOTE | 2021-04-28 11:30 | P.CDIC_ITS ---
CDI Concurrent Query Documentation Clarification: PHYSICIAN'S DOCUMENTATION REQUEST Date of Query: 04/28/21 1131 Patient Name: Jessica Hardy Admit Date: 04/22/21 Dear Doctor, A review of the medical record indicates additional documentation may be needed. Please review below and update the documentation accordingly. Risk Factors/Clinical Indicators/Treatments Nephrology note 04/25 - CKD 4 at baseline Nephrology note 04/26 - CKD 3 Based on the above, could you clarify in the Progress Notes the appropriate diagnosis, if significant, that supports the above abnormalities and additional evaluation, monitoring, and/or treatment rendered: Clarity of specifics noted within the medical record: * Chronic kidney disease Stage 3 * Chronic kidney disease Stage 4 * Chronic kidney disease other * Other * Unable to determine Use of terms such as suspected, likely, concern for, or probable (associated with a specific diagnosis that is being evaluated, monitored, or treated as if it exists) are acceptable and can be coded in the inpatient setting, when documented at the time of discharge. Thank you, Kierra Hussein [facility], CDIS Extension: [phone] Please use your independent medical judgment in providing your response. THIS QUERY IS PART OF THE PERMANENT MEDICAL RECORD Provider Response: CKD Stage 4
--- NOTE | 2021-04-28 12:56 | MHC.SL.SWA ---
Speech Pathologist Impression: Risk of Aspiration Oralpharyngeal Dysphagia Risk of Aspiration Due to: Lethargy Poor PO Intake Reduced Cognition Dysphasia Diet Status: Liquid Consistency and Strategies for Safe Swallow: Liquid Intake Recommendation: Thin Liquid Intake Strategies: Small Sips No Straws Solid Food Consistency: Dietary Recommendations: Pureed (NDD1) Additional Modifications to Solid Foods: Recommend PUREED (NDD1) solids and THIN liquids by small controlled cup sip or teaspoon, pills CRUSHED in PUREE. Patient requires total 1:1 assistance feeding. The following precautions are crucial in order for patient to tolerate PO: -minimize environmental distractions during PO intake -ensure patient is awake, alert (hold PO if lethargic) -small bites of food, cue as needed to swallow -ensure oral cavity is cleared before giving more bites -alternate bite of food with sip of liquid -liquid by small controlled cup sip or teaspoon -no straws -upgright 90 degree position during PO intake and for at least 20 minutes afterwards -oral care prior to PO intake Message sent to , RD, RN. CHIEF MECHANICAL OFFICER will continue to follow. Oral Medication Intake: Crushed with Puree Compensatory Strategies and Precautions to be Taken for Safe Swallow: Sitting Upright (90 deg) No Straw Liquids from Cup Liquids from Spoon Small Bites and Sips Alternate Liquids/Solids Rate of Ingestion Change Oral Check Supervision While Eating and Drinking for Safe Swallow: Total Assistance Swallowing Recommended Treatments: Compens. Strategy Educat. Recommendation for Speech: Inpatient Speech Therapy Comment: Frequency/Duration: M-F Dross Skimmer Clinican/Clinical Fellow: No Supervisory Statement: I have reviewed and agree with the student/clinical fellow's documentation: N/A Speech Language Pathologist: Roxy Patel M.A., [facility]-CHIEF MECHANICAL OFFICER
[2021-04-29 03:55] VITALS: BP 150/60; PULSE 60; RESP 19; TEMP 36.6; O2SAT 94
[2021-04-29] MEDS: Dextrose 5 % 1,000 ML 125 ML IVCONT (05:44)
[2021-04-29] MEDS: Heparin Sodium,Porcine 5,000 UNIT/ML VIAL 5000 UNIT SUBCUT ×2 (05:46→17:01)
[2021-04-29 07:41] VITALS: BP 118/56; PULSE 83; RESP 18; TEMP 36.6; O2SAT 98
[2021-04-29 10:18] LABS: Hematocrit 41.6 % (37.0-47.0); Hemoglobin 14.1 g/dl (12.0-16.0); Mean Corpuscular HGB Conc 33.9 g/dl (31.0-35.0); Mean Corpuscular Hemoglobin 30.9 pg (27.0-33.0); Mean Platelet Volume 10.2 fL (9.4-12.3); Platelet Count 218 X10*3/uL (160-400); Red Blood Count 4.57 X10*6/uL (4.20-5.50); White Blood Count 8.4 X10*3/uL (4.8-10.8)
[2021-04-29 10:32] LABS: Anion Gap 13 (12-20); Blood Urea Nitrogen 35 mg/dL (9-16); Calcium 8.5 mg/dL (8.4-10.2); Carbon Dioxide 16 mmol/L (22-29); Chloride 104 mmol/L (96-108); Creatinine Clr Calc Pharmacy 30.3; Estimated Glomerular Filt Rate 49; Glucose Random 169 mg/dL (60-115); Potassium 3.6 mmol/L (3.3-5.1); Sodium 129 mmol/L (135-145)
[2021-04-29 11:09] VITALS: BP 138/62; PULSE 68; RESP 19; TEMP 36.3; O2SAT 96
--- NOTE | 2021-04-29 12:01 | P.PNIM_ITS ---
Subjective Subjective Date of Service: 04/29/21 Interval History: f/u encephlopathy and covid, more alert and lucid today than yesrtday, no respiratory difficulty Review of Systems no fever no sob confusion Physical Exam Vital Signs: Vital Signs: Last Vital Signs Temp 97.4 F 04/29/21 11:09 Pulse 68 04/29/21 11:09 Resp 19 04/29/21 11:09 BP 138/62 04/29/21 11:09 Pulse Ox 96 04/29/21 11:09 BMI result Body Mass Index 20.1 Const: Other: Other:?Confused,yet oriendted to self Neck : Normal inspection, Supple Cardiovascular : RRR, S1 S2, no lower extremity edema Respiratory : Fair bilateral air entry,? no crackles, wheezes or rhonchi Gastrointestinal:? soft, lax, Normal bowel sounds, Non tender Skin : Warm, Dry Neurological :? No focal deficit, confused Objective Data Active Medications Acetaminophen (Acetaminophen 325 Mg Tablet) 650 mg PO Q6H PRN PRN Reason: Pain, Mild (Pain Scale 1-3) Heparin Sodium (Porcine) (Heparin Sodium,Porcine 5,000 Unit/Ml Vial) 5,000 unit SUBCUT Q12H [facility] Last Admin: 04/29/21 05:46 Dose: 5,000 unit Documented by: SOILA Sodium Chloride (Ns) 1,000 mls @ 80 mls/hr IVCONT .[id number] [facility] Stop: 04/30/21 12:59 Ondansetron HCl (Ondansetron Hcl 4 Mg/2 Ml Vial) 4 mg IVPUSH Q8H PRN PRN Reason: Nausea and Vomiting Sodium Chloride (0.9 % Sodium Chloride Flush 3 Ml Syringe) 3 ml IVFLUSH QSHIFT [facility] Last Admin: 04/29/21 07:12 Dose: Not Given Documented by: MEAGHAN Non-Admin Reason: IV Running Labs CBC & Chem 7: 04/29/21 10:06 04/29/21 10:06 Labs: Laboratory Results - last 24 hr 04/29/21 04/29/21 10:06 10:06 MCV 91.0 D MCH 30.9 MCHC 33.9 RDW 13.0 Plt Count 218 MPV 10.2 Absolute Nucleated RBC 0.000 Nucleated RBC % (auto) 0.0 Anion Gap 13 Estim Creat Clear Calc 30.3 Estimated GFR 49 Random Glucose 169 H Calcium 8.5 Assessment and Plan (1) PAULA (acute kidney injury): Status: Acute (2) Hyponatremia: Status: Acute (3) Hyperkalemia: Status: Acute (4) Acute dehydration: Status: Acute Assessment and Plan: 85-year-old female with past medical history of hypertension presents to the hospital with multiple issues including cephalopathy, congestion found to have COVID-19 pneumonia # Toxic metabolic encephalopathy # Delerium # restlessness - Probably d/t COVID, PAULA uremia And hyponatremia with underlying dementia and ativan head CT negative, no evidence of infection UA negative, chest x-ray shows no infiltrate, afebrile Overall doing better last 24 to 48 hours suppoertive care, Psychotropics for extreme agitation. AVOID BENZO #Dilated CBD with mild Lipase elevation normal bili, mild transaminitis CT, US as reported get GI eval possible MRI on outpatient basiss # COVID-19 infection No hypoxia, sating 100 on room # PAULA with CKD 4,-d/t dehydration, PAULA resolved. # hyponatremia--129 likely from D5, change to NS and continue monitor # hyperkalemia-- Resolved # black stools no evidence of GI bleed, stool occult negative hemoglobin stable follow CBC GI recommends no intervention # hypertension stable, will hold antihypertensives in the setting of soft BP #Metabolic acidosis--unclear etiology, improved, doesn't need bicab #Hypernatremia-- mild probably from NS, change to half normal saline and recheck later, resolved #Diet per nutrition recommendation. Care discussed with daughter in person on 04/28 DVT prophylaxis Heparin subQ Quality Stroke Does the patient have a stroke diagnosis?: No VTE Prior VTE?: No VTE Risk Level:: Medical - moderate - high VTE Device Contraindication: Treatment Not Indicated VTE Drug Contraindication: N/A - Med Ordered
[2021-04-29] MEDS: 0.9 % Sodium Chloride 1,000 ML 80 ML IVCONT (12:18)
--- NOTE | 2021-04-29 12:26 | MHC.CM.PN ---
Female 67 Covid+ vaxx Pfizer x2 DP STR. Preferences for referral do not have a bed to offer at this time. The search was expanded. A referral has been made to financial services to assist with a secondary payor. Patient may need assist with transport at discharge.
[2021-04-29 14:12] LABS: COVID-19 Test Positive (Negative); IDNOW Serial# 9DD0AD1C
[2021-04-29 16:00] VITALS: BP 149/69; PULSE 63; RESP 18; TEMP 36.3; O2SAT 97
[2021-04-29 20:00] VITALS: BP 98/70; PULSE 56; RESP 18; TEMP 36.2; O2SAT 99
[2021-04-29 23:48] VITALS: BP 96/66; PULSE 58; RESP 18; TEMP 36.3; O2SAT 97
[2021-04-30 03:54] VITALS: BP 137/64; PULSE 89; RESP 16; TEMP 37.7; O2SAT 98
[2021-04-30] MEDS: 0.9 % Sodium Chloride 1,000 ML 80 ML IVCONT (04:14)
[2021-04-30] MEDS: Heparin Sodium,Porcine 5,000 UNIT/ML VIAL 5000 UNIT SUBCUT ×2 (05:06→18:14)
[2021-04-30 07:03] LABS: Anion Gap 12 (12-20); Blood Urea Nitrogen 36 mg/dL (9-16); Calcium 8.2 mg/dL (8.4-10.2); Carbon Dioxide 17 mmol/L (22-29); Chloride 105 mmol/L (96-108); Creatinine Clr Calc Pharmacy 34.8; Estimated Glomerular Filt Rate 57; Glucose Random 102 mg/dL (60-115); Potassium 3.9 mmol/L (3.3-5.1); Sodium 130 mmol/L (135-145)
[2021-04-30 08:00] VITALS: BP 127/58; PULSE 90; RESP 20; TEMP 36.9; O2SAT 100
[2021-04-30 12:00] VITALS: BP 108/72; PULSE 80; RESP 20; TEMP 36.3; O2SAT 93
--- NOTE | 2021-04-30 12:44 | HO.PM.IMPN ---
Subjective Subjective Date of Service: 04/30/21 Interval History: f/u encephlopathy and covid, less confused, no resp distress Review of Systems no fever no sob confusion Physical Exam Vital Signs: Vital Signs: Last Vital Signs Temp 97.4 F 04/30/21 12:00 Pulse 80 04/30/21 12:00 Resp 20 04/30/21 12:00 BP 108/72 04/30/21 12:00 Pulse Ox 93 04/30/21 12:00 BMI result Body Mass Index 20.1 Const: Other: Other:?Confused,yet oriendted to self Neck : Normal inspection, Supple Cardiovascular : RRR, S1 S2, no lower extremity edema Respiratory : Fair bilateral air entry,? no crackles, wheezes or rhonchi Gastrointestinal:? soft, lax, Normal bowel sounds, Non tender Skin : Warm, Dry Neurological :? No focal deficit, confused Objective Data Active Medications Acetaminophen (Acetaminophen 325 Mg Tablet) 650 mg PO Q6H PRN PRN Reason: Pain, Mild (Pain Scale 1-3) Heparin Sodium (Porcine) (Heparin Sodium,Porcine 5,000 Unit/Ml Vial) 5,000 unit SUBCUT Q12H [facility] Last Admin: 04/30/21 05:06 Dose: 5,000 unit Documented by: DAVIN Sodium Chloride (Ns) 1,000 mls @ 80 mls/hr IVCONT .[id number] [facility] Stop: 04/30/21 12:59 Last Admin: 04/30/21 04:14 Dose: 80 mls/hr Documented by: DAVIN Ondansetron HCl (Ondansetron Hcl 4 Mg/2 Ml Vial) 4 mg IVPUSH Q8H PRN PRN Reason: Nausea and Vomiting Sodium Chloride (0.9 % Sodium Chloride Flush 3 Ml Syringe) 3 ml IVFLUSH QSHIFT [facility] Last Admin: 04/30/21 07:07 Dose: Not Given Documented by: MEAGHAN Non-Admin Reason: IV Running Labs CBC & Chem 7: 04/29/21 10:06 04/30/21 06:27 Labs: Laboratory Results - last 24 hr 04/29/21 04/30/21 13:45 06:27 Anion Gap 12 Estim Creat Clear Calc 34.8 Estimated GFR 57 Random Glucose 102 Calcium 8.2 L COVID-19 ([facility]ACE) Positive A COVID-19 Clin Com See Note Assessment and Plan (1) PAULA (acute kidney injury): Status: Acute (2) Hyponatremia: Status: Acute (3) Hyperkalemia: Status: Acute (4) Acute dehydration: Status: Acute Assessment and Plan: 85-year-old female with past medical history of hypertension presents to the hospital with multiple issues including cephalopathy, congestion found to have COVID-19 pneumonia # Toxic metabolic encephalopathy # Delerium # restlessness - Probably d/t COVID, PAULA uremia And hyponatremia with underlying dementia and ativan head CT negative, no evidence of infection UA negative, chest x-ray shows no infiltrate, afebrile Overall doing better last 24 to 48 hours, and continue to make progress suppoertive care, Psychotropics for extreme agitation. AVOID BENZO #Dilated CBD with mild Lipase elevation normal bili, mild transaminitis CT, US as reported get GI eval possible MRI on outpatient basiss # COVID-19 infection No hypoxia, sating 100 on room # PAULA with CKD 4,-d/t dehydration, PAULA resolved. # hyponatremia--130 likely from D5, continue NS, repeat tomorrow # hyperkalemia-- Resolved # black stools no evidence of GI bleed, stool occult negative hemoglobin stable follow CBC GI recommends no intervention # hypertension--BP normal without meds, continue holding meds #Metabolic acidosis--unclear etiology, improved, doesn't need bicab at this time #Diet per nutrition recommendation. Care discussed with daughter in person on 04/28 DVT prophylaxis Heparin subQ Quality Stroke Does the patient have a stroke diagnosis?: No VTE Prior VTE?: No VTE Risk Level:: Medical - moderate - high VTE Device Contraindication: Treatment Not Indicated VTE Drug Contraindication: N/A - Med Ordered
[2021-04-30 15:08] VITALS: BP 106/52; PULSE 80; RESP 20; TEMP 36.8; O2SAT 99
[2021-04-30 19:42] VITALS: BP 130/70; PULSE 82; RESP 18; TEMP 36.8; O2SAT 96
[2021-04-30 23:37] VITALS: BP 127/69; PULSE 80; RESP 20; TEMP 36.7; O2SAT 98
[2021-05-01 04:00] VITALS: BP 144/63; PULSE 86; RESP 18; TEMP 36.9; O2SAT 98
[2021-05-01] MEDS: Heparin Sodium,Porcine 5,000 UNIT/ML VIAL 5000 UNIT SUBCUT ×2 (05:21→16:42)
[2021-05-01] MEDS: 0.9 % Sodium Chloride Flush 3 ML SYRINGE IVFLUSH ×4 (06:45→21:00)
[2021-05-01 07:26] LABS: Anion Gap 15 (12-20); Blood Urea Nitrogen 37 mg/dL (9-16); Calcium 8.5 mg/dL (8.4-10.2); Carbon Dioxide 16 mmol/L (22-29); Chloride 107 mmol/L (96-108); Creatinine Clr Calc Pharmacy 31.5; Estimated Glomerular Filt Rate 51; Glucose Random 98 mg/dL (60-115); Potassium 4.9 mmol/L (3.3-5.1); Sodium 133 mmol/L (135-145)
[2021-05-01 08:00] VITALS: BP 162/99; PULSE 82; RESP 16; TEMP 36.6; O2SAT 96
--- NOTE | 2021-05-01 10:35 | P.PNIM_ITS ---
Subjective Subjective Date of Service: 05/02/21 Interval History: f/u encephlopathy and covid, less confused, no new issues. Review of Systems no fever no sob confusion Physical Exam Vital Signs: Vital Signs: Last Vital Signs Temp 97.8 F 05/01/21 08:00 Pulse 82 05/01/21 08:00 Resp 16 05/01/21 08:00 BP 162/99 H 05/01/21 08:00 Pulse Ox 96 05/01/21 08:00 BMI result Body Mass Index 20.1 Const: Other: Other:?Confused,yet oriendted to self Neck : Normal inspection, Supple Cardiovascular : RRR, S1 S2, no lower extremity edema Respiratory : Fair bilateral air entry,? no crackles, wheezes or rhonchi Gastrointestinal:? soft, lax, Normal bowel sounds, Non tender Skin : Warm, Dry Neurological :? No focal deficit, confused Objective Data Active Medications Acetaminophen (Acetaminophen 325 Mg Tablet) 650 mg PO Q6H PRN PRN Reason: Pain, Mild (Pain Scale 1-3) Heparin Sodium (Porcine) (Heparin Sodium,Porcine 5,000 Unit/Ml Vial) 5,000 unit SUBCUT Q12H [facility] Last Admin: 05/01/21 05:21 Dose: 5,000 unit Documented by: DAVIN Ondansetron HCl (Ondansetron Hcl 4 Mg/2 Ml Vial) 4 mg IVPUSH Q8H PRN PRN Reason: Nausea and Vomiting Sodium Chloride (0.9 % Sodium Chloride Flush 3 Ml Syringe) 3 ml IVFLUSH QSHIFT [facility] Last Admin: 05/01/21 09:59 Dose: 3 ml Documented by: MEAGHAN Labs CBC & Chem 7: 04/29/21 10:06 05/02/21 06:52 Labs: Laboratory Results - last 24 hr 05/01/21 06:18 Anion Gap 15 Estim Creat Clear Calc 31.5 Estimated GFR 51 Random Glucose 98 Calcium 8.5 Assessment and Plan (1) PAULA (acute kidney injury): Status: Acute (2) Hyponatremia: Status: Acute (3) Hyperkalemia: Status: Acute (4) Acute dehydration: Status: Acute Assessment and Plan: 85-year-old female with past medical history of hypertension presents to the hospital with multiple issues including cephalopathy, congestion found to have COVID-19 pneumonia # Toxic metabolic encephalopathy # Delerium # restlessness - Probably d/t COVID, PAULA uremia And hyponatremia with underlying dementia and ativan head CT negative, no evidence of infection UA negative, chest x-ray shows no infiltrate, afebrile Overall doing better last 24 to 48 hours, and continue to make progress suppoertive care, Psychotropics for extreme agitation. AVOID BENZO #Dilated CBD with mild Lipase elevation normal bili, mild transaminitis CT, US as reported get GI eval possible MRI on outpatient basiss # COVID-19 infection No hypoxia, sating 100 on room # PAULA with CKD 4,-d/t dehydration, PAULA resolved. # hyponatremia--133 DC fluid # hyperkalemia-- Resolved # black stools no evidence of GI bleed, stool occult negative hemoglobin stable follow CBC GI recommends no intervention # hypertension--BP normal without meds, continue holding meds #Metabolic acidosis--unclear etiology, improved, doesn't need bicab at this time #Diet per nutrition recommendation. Awaiting SNF placement DVT prophylaxis Heparin subQ Quality Stroke Does the patient have a stroke diagnosis?: No VTE Prior VTE?: No VTE Risk Level:: Medical - moderate - high VTE Device Contraindication: Treatment Not Indicated VTE Drug Contraindication: N/A - Med Ordered
[2021-05-01 11:27] VITALS: BP 111/86; PULSE 96; RESP 16; TEMP 36.5; O2SAT 97
[2021-05-01 15:05] VITALS: BP 141/63; PULSE 80; RESP 20; TEMP 36.4; O2SAT 99
[2021-05-01 19:07] VITALS: BP 134/98; PULSE 90; RESP 16; TEMP 36.4; O2SAT 95
[2021-05-02] VITALS: BP 125/58; PULSE 75; RESP 18; TEMP 36.6; O2SAT 97
[2021-05-02 02:57] VITALS: BP 136/63; PULSE 77; RESP 16; TEMP 36.6; O2SAT 97
[2021-05-02] MEDS: Heparin Sodium,Porcine 5,000 UNIT/ML VIAL 5000 UNIT SUBCUT ×2 (05:43→17:44)
[2021-05-02 07:21] LABS: Anion Gap 10 (12-20); Blood Urea Nitrogen 37 mg/dL (9-16); Calcium 8.6 mg/dL (8.4-10.2); Carbon Dioxide 24 mmol/L (22-29); Chloride 106 mmol/L (96-108); Creatinine Clr Calc Pharmacy 29.9; Estimated Glomerular Filt Rate 48; Glucose Random 114 mg/dL (60-115); Potassium 3.6 mmol/L (3.3-5.1); Sodium 136 mmol/L (135-145)
[2021-05-02 08:00] VITALS: BP 164/72; PULSE 86; RESP 20; TEMP 35.9; O2SAT 97
[2021-05-02] MEDS: 0.9 % Sodium Chloride Flush 3 ML SYRINGE IVFLUSH ×3 (09:39→20:27)
--- NOTE | 2021-05-02 11:40 | HO.PM.IMPN ---
Subjective Subjective Date of Service: 05/03/21 Interval History: f/u encephlopathy and covid, remains confused but could be baseline, sodium and bicab are normal Review of Systems no fever no sob confusion Physical Exam Vital Signs: Vital Signs: Last Vital Signs Temp 96.6 F L 05/02/21 08:00 Pulse 86 05/02/21 08:00 Resp 20 05/02/21 08:00 BP 164/72 H 05/02/21 08:00 Pulse Ox 97 05/02/21 08:00 BMI result Body Mass Index 20.1 Const: Other: Other:?Confused,yet oriendted to self Neck : Normal inspection, Supple Cardiovascular : RRR, S1 S2, no lower extremity edema Respiratory : Fair bilateral air entry,? no crackles, wheezes or rhonchi Gastrointestinal:? soft, lax, Normal bowel sounds, Non tender Skin : Warm, Dry Neurological :? No focal deficit, confused Objective Data Active Medications Acetaminophen (Acetaminophen 325 Mg Tablet) 650 mg PO Q6H PRN PRN Reason: Pain, Mild (Pain Scale 1-3) Heparin Sodium (Porcine) (Heparin Sodium,Porcine 5,000 Unit/Ml Vial) 5,000 unit SUBCUT Q12H [facility] Last Admin: 05/02/21 05:43 Dose: 5,000 unit Documented by: NIGEL Ondansetron HCl (Ondansetron Hcl 4 Mg/2 Ml Vial) 4 mg IVPUSH Q8H PRN PRN Reason: Nausea and Vomiting Sodium Chloride (0.9 % Sodium Chloride Flush 3 Ml Syringe) 3 ml IVFLUSH QSHIFT [facility] Last Admin: 05/02/21 09:39 Dose: 3 ml Documented by: DYANA Labs CBC & Chem 7: 04/29/21 10:06 05/02/21 06:52 Labs: Laboratory Results - last 24 hr 05/02/21 06:52 Anion Gap 10 L Estim Creat Clear Calc 29.9 Estimated GFR 48 Random Glucose 114 Calcium 8.6 Assessment and Plan (1) PAULA (acute kidney injury): Status: Acute (2) Hyponatremia: Status: Acute (3) Hyperkalemia: Status: Acute (4) Acute dehydration: Status: Acute Assessment and Plan: 85-year-old female with past medical history of hypertension presents to the hospital with multiple issues including cephalopathy, congestion found to have COVID-19 pneumonia # Toxic metabolic encephalopathy # Delerium-resolved # restlessness--resolved - Probably was d/t COVID, PAULA, And hyponatremia with underlying dementia and on top of ativan head CT negative, no evidence of infection UA negative, chest x-ray shows no infiltrate, afebrile Overall doing better continues to improve suppoertive care, Psychotropics for extreme agitation. AVOID BENZO #Dilated CBD with mild Lipase elevation normal bili, mild transaminitis CT, US as reported GI: possible MRI on outpatient basiss #Black stool: no intervention per gi, no active bleed # COVID-19 infection--assymptomatic, no hypoxia, no treatment of any kind needed # PAULA with CKD 4,-d/t dehydration, PAULA resolved. # hyponatremia--sodium isnormal now # hyperkalemia-- Resolved # hypertension--BP normal without meds, continue holding meds #Metabolic acidosis-- Resolved, bicab is normal #Diet per nutrition recommendation. Awaiting SNF placement, maybe complicaed by covid positive, previously vaccinated DVT prophylaxis Heparin subQ Quality Stroke Does the patient have a stroke diagnosis?: No VTE Prior VTE?: No VTE Risk Level:: Medical - moderate - high VTE Device Contraindication: Treatment Not Indicated VTE Drug Contraindication: N/A - Med Ordered
[2021-05-02 12:00] VITALS: BP 155/66; PULSE 87; RESP 20; TEMP 36.9; O2SAT 96
--- NOTE | 2021-05-02 14:23 | MHC.CM.PN ---
Female 85 DX Covid+ She is ready for discharge today. Referral sources have been updated. [facility] if [facility] Pt would accept a bed in [facility]. The family was called re a facility in [facility]. [facility]av[facility] accepted the bed. That messege was sent to [facility] via [employer]. No response has been received at the time of this documentation.
[2021-05-02 15:36] VITALS: BP 169/77; PULSE 100; RESP 24; TEMP 37.5; O2SAT 97
[2021-05-02 19:18] VITALS: BP 97/46; PULSE 60; RESP 16; TEMP 36.9; O2SAT 98
[2021-05-03] VITALS: PULSE 88; RESP 19; TEMP 36.7; O2SAT 92
[2021-05-03 04:00] VITALS: BP 131/67; PULSE 83; RESP 18; TEMP 36.9; O2SAT 97
[2021-05-03] MEDS: Heparin Sodium,Porcine 5,000 UNIT/ML VIAL 5000 UNIT SUBCUT (05:27)
[2021-05-03 08:00] VITALS: BP 139/63; PULSE 79; RESP 18; TEMP 36.8; O2SAT 99
[2021-05-03] MEDS: 0.9 % Sodium Chloride Flush 3 ML SYRINGE IVFLUSH (08:16)
--- NOTE | 2021-05-03 10:32 | P.DS_ITS ---
DS: Providers Provider Date of Service: 05/03/21 Date of admission: 04/22/21 21:14 Primary care physician: Mendez Griffith Consults: 04/23/21 13:37 Consult to Gastroenterology Routine Consulting Provider: Jimenez Herrera Reason for consultation: CBD dilatation, elevated lipase, AMS 04/24/21 12:09 Consult to Nephrology Routine Consulting Provider: Levi Roper Reason for consultation: Acidosis of unknown source DS: Diagnosis Discharge Diagnosis (1) PAULA (acute kidney injury): Status: Acute (2) Hyponatremia: Status: Acute (3) Hyperkalemia: Status: Acute (4) Acute dehydration: Status: Acute DS: Summary Hospital Course Hospital Course: Chief Complaint: confusion ?this is an 85-year-old female with past medical history of PVD with a carotid artery occlusion status post left endarterectomy , congenital heart valve abnormality, hypertension who brought in by her daughter for cough confusion as well as black stools.? patient is very confused, delirious, therefore cannot give history.? History is obtained from her daughter at bedside.? Daughter reports the patient has had increased confusion for the past 2 weeks, has been coughing, complaining of abdominal pain, has had congestion. ? for the past 3 days she noticed that she has been having black stools, daughter was concerned and therefore brought her to the hospital. ? On arrival to the ED patient found to have a temp of 98.6?, heart rate of 45, respiratory rate of 18, blood pressure 139/54 satting 97% on room air Labs are significant for WBC count of 4.6, sodium 127, potassium of 5.7, BUN of 57, creatinine of 1.98 with no baseline for comparison, AST of 48, ALT of 90, troponin of 29.9 with repeat of 24.4, lipase of 793, UA negative, COVID-19 positive, ?occult stool negative Abdominal CT? showed dilated common bile duct and mild intrahepatic biliary ductal dilatation, bilateral renal cysts, ?abdominal ultrasound showed common bile duct is dilated but no intrahepatic biliary ductal dilatation. ?? head CT shows no acute intracranial pathology ?chest x-ray shows no acute abnormality of the chest Hospital course ?Toxic metabolic encephalopathy with deliriu--likely from combination of covid, dehydration, hyponatremia and worsen by Ativan that she received in ED. She was very somnolent for 3 to 4 days and eventually improved, although remains confused from baseline dementia. Further work up included negative CT of head, negative UA, and CXR #Dilated CBD with mild Lipase elevation normal bili, mild transaminitis, no abdominal pain. PCP to consider outpatient MRI #? COVID-19 infection--assymptomatic, no hypoxia, no treatment of any kind was needed, O2 sat is 99 on room air #? PAULA with CKD 4, likely from dehydration and Chlorthalidone which is now discontinued #? hyponatremia--Probably related to dehydration initially and has resolve #? hyperkalemia due to PAULA - Resolved ? #? hypertension--BP has been normal for the most part and BP meds have been on hold including Chlorthalidone 25 daily, Norvasc 10, Coreg 25 bid.. Will restrt Coreg at 6.25 bid and continue to hold all the other meds. #Metabolic acidosis-- Resolved, bicab is normal #Diet per nutrition recommendation. Time Spent with Patient Time attestation: Total time spent providing and/or coordinating discharge services: Discharge coordination time: Greater than 30 minutes Quality: Stroke Does the patient have a stroke diagnosis?: No Physical Exam Verdana 4l Vital Signs: Verdana 4d Verdana 4d Vital Signs: Verdana 4d Verdana 4Bd Last Vital Signs Verdana 4d Director Of Kids New 4d Director Of Kids New 4d Temp 98.2 F 05/03/21 08:00 Director Of Kids New 4d Pulse 79 05/03/21 08:00 Director Of Kids NewNew 4d Resp 18 05/03/21 08:00 BP 139/63 05/03/21 08:00 Pulse Ox 99 05/03/21 08:00 BMI result Body Mass Index 20.1 Const: Other: Other:?Other:?Confused,yet oriendted to self Neck : Normal inspection, Supple Cardiovascular : RRR, S1 S2, no lower extremity edema Respiratory : Fair bilateral air entry,? no crackles, wheezes or rhonchi Gastrointestinal:? soft, lax, Normal bowel sounds, Non tender Skin : Warm, Dry Neurological :? No focal deficit, confused Discharge Plan Discharge Anticipated Discharge Date/Time: 05/03/21 10:25 Patient Disposition: Xfer SNF Discharge Diagnosis: Encephalopathy, covid, PAULA, dehydration Referrals: [facility] [Outside] - 1 Week Mendez Griffith [Primary Care Provider] - 1 Week Discharge Medications: New carvedilol [Coreg] 6.25 mg tablet 6.25 mg PO BID Qty: 60 RF: 0 Discontinued carvedilol 25 mg tablet 1 tab PO BID RF: 0 chlorthalidone 25 mg tablet 1 tab PO DAILY RF: 0 chlorthalidone 25 mg tablet 1 tab PO DAILY RF: 0 amlodipine 10 mg tablet 1 tab PO DAILY RF: 0 Discharge Orders: Discharge Order (Routine); Ordered 05/03/21 Ordered By: Luis Connell Diet: advance to usual diet Activity on Discharge: As tolerated Stand Alone Forms: Patient Portal Discharge page Care Plan Goals: Full recover from covid, encephalopathy and UTI Health Concerns: Dementia, HTN Plan of Treatment: To rehab, reduce blood pressure medication to avoid low blood pressure and dehdration Assessment: As above
[2021-05-03 11:05] VITALS: BP 112/86; PULSE 85; RESP 18; TEMP 36.4; O2SAT 97
[2021-05-03 12:25] LABS: COVID-19 Test Negative (Negative)
--- NOTE | 2021-05-03 12:31 | MHC.SLORD ---
Speech Language Pathology Order Status: Attempted to see Pt this a.m. to assess toleration of current diet (Puree NDD1, w/Thin Liquids), re-assess swallow. Pt refused treatment, any trials of liquid or food this a.m. Will re-attempt/follow for tolerance of P.O.
== END 2021-05-03 14:35 | disposition skilled nursing facility (03) | DRG 177 ==
LOC: HO.ED 13:50 → HO.EDOVER 21:30 → HO.IMC 04-24 18:12
PROVIDERS: Physician Assistant; Student in an Organized Health Care Education/Training Program; Admitting Provider Internal Medicine; Emergency Provider Emergency Medicine; PCP Hospitalist; Visit Provider Internal Medicine
DX: U07.1 COVID-19 (principal); G92.8 Other toxic encephalopathy; E87.1 Hypo-osmolality and hyponatremia; N17.9 Acute kidney failure, unspecified; F05 Delirium due to known physiological condition; E87.2 Acidosis; N18.4 Chronic kidney disease, stage 4 (severe); I12.9 Hypertensive chronic kidney disease with stage 1 through stage 4 chronic kidney disease, or unspecified chronic kidney disease; R19.5 Other fecal abnormalities; K83.8 Other specified diseases of biliary tract; E86.0 Dehydration; E87.5 Hyperkalemia; Z88.2 Allergy status to sulfonamides; Z79.899 Other long term (current) drug therapy
CPT/HCPCS: 36415; 70450; 71045; 74177; 76705; 80048; 80051; 80053; 80076; 81001; 82272; 82947; 83605; 83690; 84484; 85025; 85027; 87040; 87147; 87205; 87635; 92610; 93005; 96361; 96374; 96375; 97162; 99285; J2060; Q9967